=== PATIENT | female | born 1980 | race Caucasian/White ===

== ENCOUNTER 2016-05-01 09:31 | Day surgery (SDC) | payer SELFPAY ==
[2016-05-01] VITALS (23 sets, daily range): BP systolic 122–167; BP diastolic 65–101; PULSE 81–108; RESP 15–22; TEMP 97.1–100.4; O2SAT 95–100; Ht 152.4 cm; Wt 77.3 kg
[~2016-05-01] VITALS: Ht 152.4 cm; Wt 77.3 kg
[~2016-05-01 09:31] MED LIST: HUM10VIA3 SQ
--- OUTSIDE RECORDS SUMMARY | 2016-05-01 09:35 | XMS REPORT | Continuity of Care Document ---
Author Author [facility] Organization [facility] Address Unknown Phone Unavailable Support Name Relationship Address Phone MARINE BRICE APRN Caregiver [address] [place] [address] Unavailable SVETLANA ANDREA Next Of Kin [address] [place] [address] Insurance Providers Guarantor Sridevi Casey Address [address] [place] [id number] Email DENIED/NO PT PORTAL [facility] Diabetes Ed Subscriber's Name Arthur LittlejohntisandraSridevi Relationship 18 Self Problems Active Problems Medical Problem Onset Date Status Needle stick injury of finger Unknown Acute Needle stick injury of finger Unknown Acute Medications Current Home Medications Medication Dose Units Route Directions Days Qty Instructions Start Date Hum Insulin Nph/Reg Insulin Hm (Novolin 70-30 100 Unit/Ml Vial) 100 Unit/Ml Inj 47 Unit Sub-Q Twice A Day 04/08/14 Social History Social History Problem Response Recorded Date/Time Onset Date Status Hx Alcohol Use No 04/08/2014 2:10pm Not Applicable Not Applicable Tobacco Usage none 04/08/2014 2:50pm Not Applicable Not Applicable Hospital Discharge Instructions No hospital discharge instructions. Plan of Care Prescriptions See Medication Section Functional Status No functional status results. Allergies, Adverse Reactions, Alerts No known allergies. Immunizations No immunization records. Vital Signs No known vital signs results. Results No known relevant diagnostic tests, laboratory data and/or discharge summary. Procedures No known history of procedures. Encounters Encounter Location Arrival/Admit Date Discharge/Depart Date Attending Provider Discharged Recurring [facility] 12/17/15 4:41pm 02/03/16 11:59pm MARINE BRICE APRN
--- OUTSIDE RECORDS SUMMARY | 2016-05-01 09:35 | XMS REPORT | Continuity of Care Document ---
Author Author [facility] Organization [facility] Address Unknown Phone Unavailable Support Name Relationship Address Phone CLIENT, BILLING Caregiver Unknown Unavailable EMRE SVETLANA Next Of Kin [address] [place] [address] Insurance Providers Payer Name Policy Number Subscriber Name Relationship Workers Compensation Sridevi Pastrana 16 Self Problems Medical Problems Problem Onset Date Status Needle stick injury of finger Unknown Active Needle stick injury of finger Unknown Active Medications Medication Dose Route Sig Days/Qty Instructions Order Date Discontinued Date Status Hum Insulin NPH/Reg Insulin Hm 47 Unit SQ TWICE A DAY 04/08/14 Active Social History Social History Problem Response Recorded Date/Time Hx Alcohol Use No 04/08/2014 2:10pm Tobacco Usage none 04/08/2014 2:50pm Hospital Discharge Instructions No hospital discharge instructions. Plan of Care No plan of care. Functional Status Query Response Date Recorded Physical Hygiene Self April 08, 2014 2:10pm Physical Hygiene Self April 08, 2014 2:10pm Allergies, Adverse Reactions, Alerts Allergen Type Severity Reaction Status Last Updated No Known Allergies Active 04/08/14 Immunizations No immunization records. Vital Signs Acute Vital Signs Vital Response Date/Time Temperature (Fahrenheit) 96.8 deg F (96.8 - 99.1) Temperature (Calculated Celsius) 36.94030 degrees C (36.0 - 37.3) Pulse Rate (adult) 85 bpm (60 - 100) Respiratory Rate 16 breaths/min (10 - 20) O2 Sat by Pulse Oximetry 98 % (90 - 100) Blood Pressure 159/104 mm Hg Results Test Source Date Result Interp. Ref. Range Comments Alanine Aminotransferase (ALT/SGPT) February 20, 2008 5:07pm 29 U/L N 9- 52 Albumin February 20, 2008 5:07pm 4.9 G/DL N 3.5-5.0 Albumin/Globulin Ratio February 20, 2008 5:07pm 1.4 RATIO N 1.1-2.2 Alkaline Phosphatase February 20, 2008 5:07pm 77 U/L N 38-126 Anion Gap February 20, 2008 5:07pm 12.6 MEQ/L N 5-15 Aspartate Amino Transf (AST/SGOT) February 20, 2008 5:07pm 19 U/L N 14- 36 BUN/Creatinine Ratio February 20, 2008 5:07pm 13 RATIO N 6-26 Basophils # (Auto) February 20, 2008 5:07pm 0.0 T/MM3 N 0-0.2 Basophils (%) (Auto) February 20, 2008 5:07pm 0.2 % N 0-2 Blood Urea Nitrogen February 20, 2008 5:07pm 9 MG/DL N 7-17 Calcium Level February 20, 2008 5:07pm 9.7 MG/DL N 8.4-10.2 Calculated Osmolality February 20, 2008 5:07pm 277 MOSM/KG N 261-280 Carbon Dioxide Level February 20, 2008 5:07pm 26 MEQ/L N 22-30 Chloride Level February 20, 2008 5:07pm 106 MEQ/L N 98-107 Creatinine February 20, 2008 5:07pm 0.7 MG/DL N 0.7-1.2 Eosinophils # (Auto) February 20, 2008 5:07pm 0.2 T/MM3 N 0-0.5 Eosinophils (%) (Auto) February 20, 2008 5:07pm 4.8 % H 0-4 Free Thyroxine February 20, 2008 5:07pm 0.99 NG/DL N 0.78-2.19 Globulin February 20, 2008 5:07pm 3.5 G/DL N 2.4-3.5 Glucose Level February 20, 2008 5:07pm 86 MG/DL N 65-110 Hematocrit February 20, 2008 5:07pm 41.8 % N 36-46 Hemoglobin February 20, 2008 5:07pm 14.3 GM/DL N 12-16 Lymphocytes # (Auto) February 20, 2008 5:07pm 1.7 T/MM3 N 1-4.8 Lymphocytes (%) (Auto) February 20, 2008 5:07pm 36.2 % N 23-45 Mean Corpuscular Hemoglobin February 20, 2008 5:07pm 30.2 UUG N 26-34 Mean Corpuscular Hemoglobin Concent February 20, 2008 5:07pm 34.2 GM/DL N 31-37 Mean Corpuscular Volume February 20, 2008 5:07pm 88.2 UM3 N 80-100 Mean Platelet Volume February 20, 2008 5:07pm 11.6 UM3 H 7.4-10.4 Monocytes # (Auto) February 20, 2008 5:07pm 0.3 T/MM3 N 0-0.8 Monocytes (%) (Auto) February 20, 2008 5:07pm 6.0 % N 0-9.0 Neutrophils # (Auto) February 20, 2008 5:07pm 2.5 T/MM3 N 1.8-7.7 Neutrophils (%) (Auto) February 20, 2008 5:07pm 52.8 % N 33-66 Platelet Count February 20, 2008 5:07pm 232 T/MM3 N 130-400 Potassium Level February 20, 2008 5:07pm 4.4 MEQ/L N 3.6-5 RDW Standard Deviation February 20, 2008 5:07pm 41.7 FL N 36.9-50.2 Red Blood Count February 20, 2008 5:07pm 4.74 M/MM3 N 4.00-5.20 Sodium Level February 20, 2008 5:07pm 144 MEQ/L N 134-144 Thyroid Stimulating Hormone (TSH) February 20, 2008 5:07pm 0.75 MIU/ML N 0.47-4.68 Total Bilirubin February 20, 2008 5:07pm 0.73 MG/DL N 0.20-1.30 Total Protein February 20, 2008 5:07pm 8.4 G/DL H 6.3-8.2 White Blood Count February 20, 2008 5:07pm 4.8 T/MM3 N 4.5-11.0 Glomerular Filtration Rate Calc February 20, 2008 5:07pm 98 - Procedures No known history of procedures. Encounters Encounter Location Date/Time Registered Emergency Room [facility] 04/08/14 1:20pm
--- OUTSIDE RECORDS SUMMARY | 2016-05-01 09:57 | XMS REPORT | Continuity of Care Document ---
Author Author [facility] Organization [facility] Address Unknown Phone Unavailable Support Name Relationship Address Phone CLIENT, BILLING Caregiver Unknown Unavailable EMRE SVETLANA Next Of Kin [address] [place] [address] Insurance Providers Payer Name Policy Number Subscriber [...] F (96.8 - 99.1) Temperature (Calculated Celsius) 36.24121 degrees C (36.0 - 37.3) Pulse Rate [...] Encounters Encounter Location Date/Time Registered Emergency Room [facility] 04/08/14 1:20pm
[2016-05-01] MEDS ORDERED: MEDR150V IM (09:58)
[2016-05-01] MEDS ORDERED: ACET325T51 PO (09:59)
[2016-05-01] MEDS ORDERED: NORMAL SALINE 1,000 ML IV ONE ×2 (10:00→15:15)
[2016-05-01] MEDS ORDERED: IBUP-1547 PO (10:01)
[2016-05-01] MEDS ORDERED: INSU100V SQ (10:02)
[2016-05-01 10:03] LABS: HCT - HEMATOCRIT 43.1 % (36-46); HGB - HEMOGLOBIN 15.5 GM/DL (12-16); MEAN CORPUSCULAR HGB 30.4 UUG (26-34); MEAN CORPUSCULAR VOLUME 84.5 UM3 (80-100); MEAN PLATELET VOLUME 10.7 UM3 (9.4-12.4); WBC - WHITE BLOOD COUNT 12.2 T/MM3 (4.5-11.0)
[2016-05-01] MEDS ORDERED: LINA5TAB PO (10:03)
[2016-05-01] MEDS ORDERED: INSU100I21 SQ (10:04)
[2016-05-01] MEDS ORDERED: LISI-621 PO (10:04)
[2016-05-01 10:12] LABS: ALBUMIN 4.4 G/DL (3.5-5.0); ALBUMIN/GLOBULIN RATIO 1.3 RATIO (1.1-2.2); ALKALINE PHOSPHATASE 118 U/L (38-126); ALT (SGPT) 40 U/L (9-52); ANION GAP 17 MEQ/L (5-15); AST (SGOT) 26 U/L (14-36); BUN/CREATININE RATIO 14 RATIO (6-26); CALCIUM 9.1 MG/DL (8.4-10.2); CHLORIDE 101 MEQ/L (98-107); CO2 - CARBON DIOXIDE 24 MEQ/L (22-30); CREATININE 0.5 MG/DL (0.7-1.2); GLOMERULAR FILTRATION RATE 138; GLUCOSE 353 MG/DL (65-110); LIPASE 127 U/L (23-300); POTASSIUM 4.2 MEQ/L (3.6-5); SODIUM 142 MEQ/L (134-144); TOTAL PROTEIN 7.7 G/DL (6.3-8.2)
[2016-05-01 10:16] LABS: MONOCYTES # (MANUAL) 0.4 T/MM3 (0-0.8); NEUTROPHILS #(MANUAL)-ABSOLUTE 9.9 T/MM3 (1.8-7.7); TOTAL CELLS COUNTED 100 %
[2016-05-01 10:29] LABS: BLOOD, URINE NEGATIVE (NEGATIVE); COLOR,URINE YELLOW (YELLOW); LEUKOCYTE ESTERASE ,URINE NEGATIVE (NEGATIVE); NITRITE,URINE POSITIVE (NEGATIVE); UROBILINOGEN,URINE 0.2 EU/DL (NORMAL)
[2016-05-01] MEDS ORDERED: SALINE FLUSH 10ml SYRINGE ONE (10:30)
[2016-05-01] MEDS ORDERED: NORMAL SALINE 100 ML ONE (10:30)
[2016-05-01] MEDS ORDERED: IOHEXOL 300 MG/ML 100ml INJECTION ONE (10:30)
[2016-05-01 10:37] LABS: BACTERIA,URINE 4+ (NEGATIVE); RBC,URINE 0-1 /HPF (0-3); WBC,URINE 0-1 /HPF (0-5)
--- NOTE | 2016-05-01 11:12 | DI ---
Indication: ITS.REASON: RLQ Pain PROCEDURE: CT ABD/PELVIS W/CONTRAST ONLY: Encounter: Initial Comparison: None Technique: Axial CT images were performed through the abdomen and pelvis after the administration of intravenous contrast. Coronal and sagittal two-dimensional reformats. Automated Exposure Control and Iterative Reconstruction dose reducing techniques were utilized. Contrast: Omnipaque 300 100 mL Findings: Mild prominence of the interstitial markings in the lung bases. The liver is decreased in attenuation relative to the spleen consistent with fatty infiltration. No enhancing liver masses or bile duct dilatation. The gallbladder is normal. The spleen, pancreas and adrenal glands are within normal limits. Small probable cyst in the inferior aspect of the left kidney. The kidneys are otherwise normal. No abdominal or pelvic lymphadenopathy. The bladder is normal. Uterus and ovaries are normal for age. No free fluid or bowel obstruction. The appendix is enlarged measuring 9 mm in diameter. There may be trace inflammatory change in the adjacent fat. No free air or abscess. Bone windows show no acute findings. Calcified disk protrusion at T9-T10 causing right lateral recess narrowing. Impression: 1. Enlarged appendix with questionable minimal fat stranding consistent with an early or mild acute appendicitis in the appropriate clinical setting. Recommend surgical consultation. 2. Hepatic steatosis. .
[2016-05-01] MEDS ORDERED: FENTANYL 100mcg/2ml INJECTION IV ONE (11:30)
--- NOTE | 2016-05-01 11:31 | ERPDOC ---
Departure Disposition Decision Date: May 01, 2016 Disposition Decision Time: 11:20 Disposition: 02 TO [facility] Impression Impression Impression: Primary Impression: Acute appendicitis Acute appendicitis type: unspecified acute appendicitis type Qualified Codes : K35.80 - Unspecified acute appendicitis Additional Impression: Hyperglycemia Severity: Moderate Condition: Improved Seen By: Physician only Referrals: MARINE BRICE APRN (Family) Problems/Meds/Labs Reviewed?: Yes Medications reviewed and manag: Yes Follow up care ordered?: Yes Mental Status: Alert, Oriented HPI - Abdominal Pain General Chief Complaint: Abdominal Pain Stated Complaint: ABD PAIN Time Seen by Provider: 09:43 Source: patient History/Exam Limitations: no limitations HPI - Abdominal Pain Initial Comments 36-year-old female presents to the emergency department with a chief complaint of abdominal pain. Around 01:00 this morning, the patient noted onset of periumbilical abdominal pain which has migrated to the right lower quadrant. Pain is moderate. Pain is sharp. There is no radiation of pain. She notes that the pain increases with direct palpation of the affected area. Pain improves with rest and positioning. Patient denies any other complaints or associated symptoms. Patient was at home when her symptoms began. Symptoms have been persistent in nature since onset with gradual progression. Patient denies any trauma, travel, poorly prepared food, or recent antibiotic use. Allergies: Coded Allergies: No Known Allergies (Unverified , 05/01/16) Past History Past Medical History Metabolic: diabetes Hx Echocardiogram: No Surgical History Denies Surgeries Family History Family History: Negative Social History Smoking Status: Never smoker Substance Use Type: does not use Alcohol Intake: none Sexuality: male partner Review of Systems Constitutional Constitutional: DENIES: chills, fever Eyes General: DENIES: erythema, exudate Lids/Accessories: DENIES: erythema, swelling Vision: DENIES: acuity, blurring ENMT Ears: DENIES: erythema, pain Hearing: DENIES: hearing loss Balance: DENIES: ataxia, falling to one side Sinuses: DENIES: congestion, pain Nose: DENIES: nosebleeds, pain Mouth/Throat: DENIES: painful swallowing, sore throat Teeth: DENIES: pain Jaw: DENIES: pain Cardiovascular Cardiac: DENIES: chest pain, dyspnea on exertion Rhythm/Rate: DENIES: irregular beat, palpitations Vascular: DENIES: pedal edema, unilateral swelling Pulmonary Respiratory: DENIES: cough, dyspnea, pleuritic chest pain, sputum GI Upper Abdomen: DENIES: nausea, pain, vomiting Lower Abdomen: pain, DENIES: blood in stool, diarrhea General: DENIES: dysuria, pain Musculoskeletal General: DENIES: pain, tenderness Integumentary Skin: DENIES: itching, rash Neurological General: DENIES: headache, numbness, weakness Psychiatric Psychiatric: DENIES: emotional instability, suicidal ideation/attempt Endocrine Endocrine: DENIES: polydipsia, polyphagia Hematologic/Lymphatic Hematologic/Lymphatic: DENIES: frequent nosebleeds, lymphadenopathy Allergic/Immunological Allergic/Immunoligical: DENIES: allergic reactions, hives Physical Exam General General Nourishment: well nourished, well developed, appears stated age, no acute distress, adult General Body Habitus: well groomed Vitals and Pain First Documented Vital Signs Date Time Temp Pulse Resp B/P Pulse Ox O2 Delivery O2 Flow Rate FiO2 05/01/16 09:33 98.2 99 16 132/78 98 Room Air 05/01/16 19:27 6.00 Weight: Kilograms: 79.000 Height (feet): 5 Height (inches): 5.00 Triage Pain Scale: RN VS reviewed by Provider: Yes Normal Exams: Head: Normocephalic w/o trauma Eyes: Pupils are PERRLA w/ EOMI, No scleral icterus, irritation, or foreign bodies noted ENMT: No facial trauma, nasal exudates, pharyngeal erythema, or exudates are noted Dental: No fractured, loose, or missing teeth noted Neck: Full range of motion, without adenopathy, JVD, bruits or thyromegaly Chest/Resp: Clear all granda, with good airflow, and symmetry bilaterally CV: Regular rate and rhythm, without murmur or gallop, Pulses 2+ all extremities, capillary refill, <2 seconds all ext., no pedal edema noted Abdomen: Bowel sounds positive, non-distended, no hepatosplenomegaly, masses or bruits noted Lymphatic: No lymphadenopathy, or lymphedema noted Musculoskeletal: No tenderness, or deformity noted, good range of motion, all extremities Integumentary: No rashes, hives, or bruising noted, hair and nails, without abnormality Neurologic: Patient is alert, and oriented, cranial nerves, motor/sensory/ cerebellar, exams w/o gross deficits, to observation Psychiatric: Patient exhibits, appropriate attention, emotion and affect Abdomen (brief) Comments Tender to palpation in the right lower quadrant over McBurney's point. No peritoneal signs. No CVA tenderness. Lymphatic (brief) Comments Patient refused pelvic examination. Differential Diagnoses Considering: Appendicitis, Diverticulitis, Ectopic , IBS Progress Results/Orders Orders Procedure Category Date Status Time Cbc W/Auto LAB 05/01/16 Complete Diff-Reflex Manual Cmp - Comprehensive LAB 05/01/16 Complete Metabolic Lipase LAB 05/01/16 Complete LAB 05/01/16 Complete Qualitative, Urine 09:44 Normal Saline (Normal PHA 05/01/16 Complete Saline Iv) 10:00 Ct Abd/Pelvis CT 05/01/16 Resulted W/Contrast Only 10:15 UA, LAB 05/01/16 Complete Dip&Micro(Complete) & 10:21 Iohexol (Omnipaque) PHA 05/01/16 Complete 10:30 Normal Saline (Ns) PHA 05/01/16 Complete 10:30 Saline Flush (Iv PHA 05/01/16 Complete Flush) 10:30 Urine Culture BOUCHRA 05/01/16 In Process 10:37 Fentanyl (Fentanyl) PHA 05/01/16 Complete 11:30 Piperacillin/Tazobactam PHA 05/01/16 In Process (Zosyn) 15:00 Blood Gas, Arterial - LAB 05/01/[address] In Facility: ED ADM 05/01/16 Transmitted 11:28 Attending Doctor ADMIT 05/01/16 Transmitted 12:54 Normal Saline (Normal PHA 05/01/16 Complete Saline Iv) 13:00 Change Patient Status ADMIT 05/01/16 Transmitted to: Ondansetron Inj PHA 05/01/16 In Process (Zofran) 13:15 Morphine Sulfate PHA 05/01/16 Complete (Morphine) 13:15 Blood Glucose ANITA 05/01/16 In Process Assessment Bgm 13:10 Physician Consult CONS 05/01/16 Transmitted Cbc W/Auto LAB 05/02/16 Complete Diff-Reflex Manual 04:00 Bmp - Basic Metabolic LAB 05/02/16 Complete Panel 04:00 Incentive Spirometry RT 05/01/16 Logged Manage Incentive ANITA 05/01/16 In Process Spirometer 16:00 Compression Type Scd/ ANITA 05/01/16 In Process Nasir Hose 13:42 Insulin Regular PHA 3/24/17 Complete (Novolin R) 15:00 Normal Saline (Normal PHA 05/01/16 Complete Saline Iv) 15:15 Consent For Procedure ANITA 05/01/16 Complete 16:44 Fentanyl (Fentanyl) PHA 05/01/16 Complete 17:15 Propofol 200mg PHA 05/01/16 Complete (Diprivan) 17:39 Rocuronium (Zemuron) PHA 05/01/16 Complete 17:39 Succinylcholine PHA 05/01/16 Complete (Quelicin) 17:39 Sevoflurane (Ultane) PHA 05/01/16 Complete 18:01 Anesthesia Inhalation PHA 05/01/16 Complete Agent (Anesthesia 18:01 Fentanyl (Fentanyl) PHA 05/01/16 Complete 18:01 Propofol 200mg PHA 05/01/16 Complete (Diprivan) 18:55 Sugammadex (Bridion) PHA 05/01/16 Complete 18:56 Transfer TRANSFER 05/01/16 Complete Measure Vital Signs ANITA 05/01/16 In Process 19:21 Measure Intake And ANITA 05/01/16 In Process Output Nursing, Diet Advance ANITA 05/01/16 In Process 19:21 Clear Liquid: [place] & DIET 05/02/16 Transmitted Crackers Breakfast Activity As Tolerated ANITA 05/01/16 In Process 19:21 Blood Glucose ANITA 05/01/16 Complete Assessment Bgm 19:21 Manage Oxygen ANITA 05/01/16 Complete Administration 19:21 Manage Incentive ANITA 05/01/16 In Process Spirometer 19:21 Morphine Sulfate PHA 05/01/16 In Process (Morphine) 19:30 Oxycodone I.R. PHA 05/01/16 In Process (Roxicodone) 19:30 Acetaminophen PHA 05/01/16 In Process (Tylenol Extra 19:30 Ibuprofen (Motrin) PHA 05/01/16 In Process 19:30 Promethazine PHA 05/01/16 In Process (Phenergan) 19:30 Hot Pack / Heating Pad ANITA 05/01/16 In Process 19:21 Compression Type Scd/ ANITA 05/01/16 Complete Nasir Hose 19:21 Ondansetron Inj PHA 05/01/16 In Process (Zofran) 19:30 Oxygen, Continuous RT 05/01/16 Logged 19:21 Incentive Spirometry RT 05/01/16 Logged 19:21 Manage Oxygen ANITA 05/01/16 In Process Administration 19:30 Hydromorphone PHA 05/01/16 Complete (Dilaudid) 19:30 Ondansetron Inj PHA 05/01/16 Complete (Zofran) 19:30 Oxygen, Continuous RT 05/01/16 Logged 19:30 Glucose Oral Gel 40% PHA 05/01/16 In Process (Glutose 15) 22:30 Dextrose 50% Pfs PHA 05/01/16 In Process (D50w) 22:30 Insulin Regular PHA 05/01/16 In Process (Novolin R) 22:30 Blood Glucose ANITA 05/01/16 Complete Assessment Bgm 22:21 Lab Results Laboratory Tests Test 05/01/16 09:56 05/01/16 10:21 05/01/16 11:33 05/01/16 12:15 White Blood Count 12.2T/MM3 Red Blood Count 5.10M/MM3 Hemoglobin 15.5GM/DL Hematocrit 43.1% Mean Corpuscular Volume 84.5UM3 Mean Corpuscular Hemoglobin 30.4UUG Mean Corpuscular Hemoglobin Concent 36.0GM/DL RDW Standard Deviation 35.6FL Platelet Count 210T/MM3 Mean Platelet Volume 10.7UM3 Immature Granulocyte % (Auto) % Neutrophils (%) (Auto) % Lymphocytes (%) (Auto) % Monocytes (%) (Auto) % Eosinophils (%) (Auto) % Basophils (%) (Auto) % Absolute Immature Granulocyte (auto T/MM3 Absolute Neutrophils (auto) T/MM3 Absolute Lymphocytes (auto) T/MM3 Absolute Monocytes (auto) T/MM3 Absolute Eosinophils (auto) T/MM3 Absolute Basophils (auto) T/MM3 Neutrophils % (Manual) 81.0% Band Neutrophils % 8.0% Lymphocytes % (Manual) 8.0% Monocytes % (Manual) 3.0% Absolute Neutrophils (Manual) 9.9T/MM3 Band Neutrophils # 1.0T/MM3 Lymphocytes # (Manual) 1.0T/MM3 Monocytes # (Manual) 0.4T/MM3 Red Cell Morphology Comment Normal Turbidity < 20 Sodium Level 142MEQ/L Potassium Level 4.2MEQ/L Chloride Level 101MEQ/L Carbon Dioxide Level 24MEQ/L Anion Gap 17MEQ/L Blood Urea Nitrogen 7.0MG/DL Creatinine 0.5MG/DL Glomerular Filtration Rate Calc 138 BUN/Creatinine Ratio 14RATIO Glucose Level 353MG/DL Calculated Osmolality 285MOSM/KG Calcium Level 9.1MG/DL Total Bilirubin 1.10MG/DL Icterus Index < 2 Aspartate Amino Transf (AST/SGOT) 26U/L Alanine Aminotransferase (ALT/SGPT) 40U/L Alkaline Phosphatase 118U/L Total Protein 7.7G/DL Albumin 4.4G/DL Globulin 3.3G/DL Albumin/Globulin Ratio 1.3RATIO Lipase 127U/L Chemistry Specimen Hemolysis < 15 Urine Collection Type Cleancatch-midstream Urine Color Yellow Urine Turbidity Clear Urine pH 7.0 Urine Specific [place] 1.015 Urine Protein 1+ Urine Glucose (UA) 3+ Urine Ketones 3+ Urine Blood Negative Urine Nitrite Positive Urine Bilirubin Negative Urine Urobilinogen 0.2EU/DL Urine Leukocyte Esterase Negative Urine RBC 0-1/HPF Urine WBC 0-1/HPF Urine Squamous Epithelial Cells 5-10 Urine Bacteria 4+ Urine Culture Indicated Cult reflexed &setup Urine Test Negative Glucometer 218mg/dL Arterial Blood pH 7.440 Arterial Blood Partial Pressure CO2 35MMHG Arterial Blood pO2 at Patient Temp 69MMHG Arterial Blood HCO3 24MEQ/L Arterial Blood Total CO2 24.9MEQ/L Arterial Blood Oxygen Saturation 94.0% Arterial Blood Base Excess 0.0MMOL/L Oxygen Delivery Method (LAB) Room air Blood Gas Oxygen Liter Flow Blood Gas Oxygen Percent Given 21 Blood Gas Vent Rate Blood Gas Tidal Volume ML Test 05/01/16 12:37 05/01/16 14:14 05/01/16 15:02 05/01/16 16:00 Glucometer 235mg/dL 231mg/dL 223mg/dL 233mg/dL Test 05/01/16 17:09 05/01/16 21:40 05/02/16 04:30 05/02/16 06:03 Glucometer 210mg/dL 240mg/dL 258mg/dL White Blood Count 14.0T/MM3 Red Blood Count 4.49M/MM3 Hemoglobin 13.7GM/DL Hematocrit 39.0% Mean Corpuscular Volume 86.9UM3 Mean Corpuscular Hemoglobin 30.5UUG Mean Corpuscular Hemoglobin Concent 35.1GM/DL RDW Standard Deviation 37.3FL Platelet Count 194T/MM3 Mean Platelet Volume 11.3UM3 Immature Granulocyte % (Auto) 0.1% Neutrophils (%) (Auto) 80.1% Lymphocytes (%) (Auto) 11.7% Monocytes (%) (Auto) 8.0% Eosinophils (%) (Auto) 0.0% Basophils (%) (Auto) 0.1% Absolute Immature Granulocyte (auto 0.02T/MM3 Absolute Neutrophils (auto) 11.2T/MM3 Absolute Lymphocytes (auto) 1.6T/MM3 Absolute Monocytes (auto) 1.1T/MM3 Absolute Eosinophils (auto) 0.0T/MM3 Absolute Basophils (auto) 0.0T/MM3 Turbidity < 20 Sodium Level 136MEQ/L Potassium Level 3.7MEQ/L Chloride Level 104MEQ/L Carbon Dioxide Level 23MEQ/L Anion Gap 9MEQ/L Blood Urea Nitrogen 5.0MG/DL Creatinine 0.5MG/DL Glomerular Filtration Rate Calc 138 BUN/Creatinine Ratio 10RATIO Glucose Level 294MG/DL Calculated Osmolality 270MOSM/KG Calcium Level 8.1MG/DL Icterus Index < 2 Chemistry Specimen Hemolysis < 15 Medications Current ED Medications Sodium Chloride (Normal Saline IV) 1,000 ml @ 999 mls/hr Q1H1M ONCE IV Last administered on 05/01/16t 10:22; Start 05/01/16 at 10:00; Stop 05/01/16 at 11:00 ; Status DC Iohexol 1 bottle 1 bottle STK-MED ONCE .ROUTE ; Start 05/01/16 at 10:30; Stop at 10:31; Status DC Sodium Chloride (NS) 100 ml @ As Directed STK-MED ONCE .ROUTE ; Start 05/01/16 at 10:30; Stop 05/01/16 at 10:31; Status DC Sodium Chloride (Iv Flush) 10 ml STK-MED ONCE .ROUTE ; Start 05/01/16 at 10:30; Stop 05/01/16 at 10:31; Status DC Progress Progress Labs/imaging were discussed in detail with the patient and questions are answered. Patient is started on Zosyn 4.5 g intravenously times one after review of CT scan. Patient is given 1 L of normal saline intravenously. Patient's blood glucose improves from 350 to 218 milligrams per deciliter with the infusion of IV fluids. Patient is not acidotic. Blood gas shows normal pH. Patient is not in diabetic ketoacidosis as she is not acidotic. Patient will be admitted to the service of the hospitalist Dr. Moncada improved condition. Dr. Britton of general surgery was consulted and will perform appendectomy. No further orders from accepting or consulting physicians who were in agreement with the current plan of management. Patient is admitted to the hospital in improved condition. Patient was given parental narcotic and antiemetic medications intravenously which improved her symptoms. Patient is made nothing by mouth in the emergency department. Dr. Britton requests admission to the hospitalist due to the hyperglycemia and history of diabetes mellitus. CT CT : CT: Abd/Pelvis IV contrast Interpretation: Abnormal, Reviewed Written Report (Findings consistent with early acute appendicitis. no other acute processes. ) DEANDRE MCNULTY DO May 01, 2016 11:31
--- OUTSIDE RECORDS SUMMARY | 2016-05-01 11:41 | XMS REPORT | Continuity of Care Document ---
Author Author [facility] Organization [facility] Address Unknown Phone Unavailable Support Name Relationship Address Phone CLIENT, BILLING Caregiver Unknown Unavailable EMRE SVETLANA Next Of Kin [address] [place] [address] Insurance Providers Payer Name Policy Number Subscriber [...] F (96.8 - 99.1) Temperature (Calculated Celsius) 36.07483 degrees C (36.0 - 37.3) Pulse Rate [...] Encounters Encounter Location Date/Time Registered Emergency Room [facility] 04/08/14 1:20pm
--- NOTE | 2016-05-01 11:45 | NUR ---
MEDS NOT GIVEN ANITIBIOTICS NOT GIVEN AT THIS TIME, NOT STOCKED IN ED. PHARMACY NOTIFIED.
--- NOTE | 2016-05-01 11:55 | NUR ---
NURSING REPORT/PHARMACY CONTACT/RT CONTACT CALLED AND GAVE REPORT ON PT. PHARMACY ALSO CONTACTED AND THEY STATE THEY WILL TAKE ZOSYN TO PT'S ROOM ONCE FINISHED. RT ALSO CONTACTED AND THEY STATE THEY WILL DO ABG IN PT'S ROOM.
--- NOTE | 2016-05-01 12:00 | NUR ---
ARRIVAL PT TO ROOM 133 PER WHEELCHAIR BY ED STAFF. PT ON RA, TOLERATING WELL. VS STABLE. NS BOLUS INFUSING FROM ED. PT STATES PAIN IN BETTER. FAROESE SPEAKING, WILL GET STRATUS. FAMILY IN ROOM. WILL CONTINUE TO MONITOR.
--- NOTE | 2016-05-01 12:00 | NUR ---
DEPART ED/ADMIT PT TAKEN PER WHEELCHAIR TO ROOM 133 WITHOUT DIFFICULITES. PT'S WITH PT AND CARRYING PERSONAL BELONGINGS.
[2016-05-01] MEDS ORDERED: NORMAL SALINE 1,000 ML IV SCH (13:00)
--- NOTE | 2016-05-01 13:14 | HPPDOC ---
KILO VIVAR V RN INVASIVE 05/01/16 1303: HPI - Adult Date DATE: 05/01/16 TIME: 12:58 General Chief Complaint: Abd pain History of Present Illness Patient is a 36-year-old female who had a sudden onset of abdominal pain at 1 a.m. Pain persisted all morning Thus, she presented to the emergency room today for further evaluation and treatment. The WBC count was found to be slightly elevated at 12.2, hemoglobin 15.5, hematocrit 43.1, platelet count 210 , neutrophils 81% with 8% bandemia. Sodium is 142, potassium 4.2, anion gap 17, creatinine 0.5, BUN 7. Initial glucose was elevated at 353. However, currently on recheck is down to 235. Lipase is normal at 127. Urinalysis is obtained showing 1+ protein, 3+ glucose, 3+ ketones, positive nitrates with 4+ bacteria. CT scan of the abdomen did reveal an enlarged appendix with questionable fat stranding consistent with acute appendicitis. She was started on IV fluids while in the emergency room and received fentanyl for pain control. She was admitted under the hospitalist service as an outpatient for further evaluation and treatment. Dr. Britton is consulted for further surgical evaluation and treatment plan. Patient is seen on initial examination. She is alert and oriented and without any acute distress. Exam is performed via appraiser art screen. Complains of right lower quadrant and right sided abdominal pain. Past Medical History Past Medical History Type II diabetes Hypertension Depression Surgical History Patient's Surgical History: None Current Medications Home Meds Reported Medications Lisinopril (Lisinopril) 20 Mg Tablet, 20 MG PO DAILY 05/01/16 Insulin Detemir (Levemir Flextouch) 100 Unit/1 Ml Insuln.pen, 25 UNIT SQ HS 05/01/16 Linagliptin (Tradjenta) 5 Mg Tablet, 5 MG PO DAILY 05/01/16 Insulin Lispro (Humalog) 100 Unit/Ml Inj, 25 UNIT SQ TIDWM 05/01/16 Ibuprofen (Ibuprofen) 800 Mg Tablet, 800 MG PO TID Y for PAIN 05/01/16 Acetaminophen (Acetaminophen) 325 Mg Tablet, 325 MG PO PRN Y for PAIN 05/01/16 Medroxyprogesterone Acetate (Depo-Provera) 150 Mg/1 Ml Vial, 1 ML IM Q3M 3/24/17 Allergies: Coded Allergies: No Known Allergies (Unverified , 05/01/16) Family History Family History: Unable to obtain, noncontributory Social History Smoking Status: Never smoker Substance Use Type: does not use Marital Status: Sexuality: male partner Advance Directives: No DPOA for Healthcare Only Social History Comments Primary care provider, Juliet Hoffman at [facility] Review of Systems GI Lower Abdomen: pain (Right sided abd) All Other Systems All Other Systems: Reviewed (remainder of 10-point ROS Neg.) Physical Exam General General Nourishment: well nourished, well developed Vital Signs Vital Signs Date Time Temp Pulse Resp B/P Pulse Ox O2 Delivery O2 Flow Rate FiO2 05/01/16 12:05 98.9 88 16 145/98 97 Room Air Height (Feet): 5 Height (Inches): 0.00 ENMT Brief: FOUND: mucosa moist, normal dentition, NOT FOUND: pharnyx erythema Respiratory Brief: FOUND: clear all granda, equal bilaterally, NOT FOUND: wheezes Cardiovascular (brief) Cardiac Brief: FOUND: regular rate, regular rhythm, NOT FOUND: murmur, pedal edema Abdomen (brief) Abdominal Brief: FOUND: soft, tender (right sided abdominal), NOT FOUND: BS normo active x4 (hypoactive) Integumentary (brief) Integumentary Brief: FOUND: dry, pink, warm Neurologic (brief) Neurological Brief: FOUND: cranial 2-12 intact Neurologic RN Documented GCS Eye Opening: Verbal: Motor: Total: Psychiatric (brief) FOUND: alert, attentive, normal affect, oriented Laboratory Laboratory Tests Test 05/01/16 09:56 05/01/16 10:21 05/01/16 12:15 05/01/16 12:37 White Blood Count 12.2T/MM3 Red Blood Count 5.10M/MM3 Hemoglobin 15.5GM/DL Hematocrit 43.1% Mean Corpuscular Volume 84.5UM3 Mean Corpuscular Hemoglobin 30.4UUG Mean Corpuscular Hemoglobin Concent 36.0GM/DL RDW Standard Deviation 35.6FL Platelet Count 210T/MM3 Mean Platelet Volume 10.7UM3 Immature Granulocyte % (Auto) % Neutrophils (%) (Auto) % Lymphocytes (%) (Auto) % Monocytes (%) (Auto) % Eosinophils (%) (Auto) % Basophils (%) (Auto) % Absolute Immature Granulocyte (auto T/MM3 Absolute Neutrophils (auto) T/MM3 Absolute Lymphocytes (auto) T/MM3 Absolute Monocytes (auto) T/MM3 Absolute Eosinophils (auto) T/MM3 Absolute Basophils (auto) T/MM3 Neutrophils % (Manual) 81.0% Band Neutrophils % 8.0% Lymphocytes % (Manual) 8.0% Monocytes % (Manual) 3.0% Absolute Neutrophils (Manual) 9.9T/MM3 Band Neutrophils # 1.0T/MM3 Lymphocytes # (Manual) 1.0T/MM3 Monocytes # (Manual) 0.4T/MM3 Red Cell Morphology Comment Normal Turbidity < 20 Sodium Level 142MEQ/L Potassium Level 4.2MEQ/L Chloride Level 101MEQ/L Carbon Dioxide Level 24MEQ/L Anion Gap 17MEQ/L Blood Urea Nitrogen 7.0MG/DL Creatinine 0.5MG/DL Glomerular Filtration Rate Calc 138 BUN/Creatinine Ratio 14RATIO Glucose Level 353MG/DL Calculated Osmolality 285MOSM/KG Calcium Level 9.1MG/DL Total Bilirubin 1.10MG/DL Icterus Index < 2 Aspartate Amino Transf (AST/SGOT) 26U/L Alanine Aminotransferase (ALT/SGPT) 40U/L Alkaline Phosphatase 118U/L Total Protein 7.7G/DL Albumin 4.4G/DL Globulin 3.3G/DL Albumin/Globulin Ratio 1.3RATIO Lipase 127U/L Chemistry Specimen Hemolysis < 15 Urine Collection Type Cleancatch-midstream Urine Color Yellow Urine Turbidity Clear Urine pH 7.0 Urine Specific [place] 1.015 Urine Protein 1+ Urine Glucose (UA) 3+ Urine Ketones 3+ Urine Blood Negative Urine Nitrite Positive Urine Bilirubin Negative Urine Urobilinogen 0.2EU/DL Urine Leukocyte Esterase Negative Urine RBC 0-1/HPF Urine WBC 0-1/HPF Urine Squamous Epithelial Cells 5-10 Urine Bacteria 4+ Urine Culture Indicated Cult reflexed &setup Urine Test Negative Arterial Blood pH 7.440 Arterial Blood Partial Pressure CO2 35MMHG Arterial Blood pO2 at Patient Temp 69MMHG Arterial Blood HCO3 24MEQ/L Arterial Blood Total CO2 24.9MEQ/L Arterial Blood Oxygen Saturation 94.0% Arterial Blood Base Excess 0.0MMOL/L Oxygen Delivery Method (LAB) Room air Blood Gas Oxygen Liter Flow Blood Gas Oxygen Percent Given 21 Blood Gas Vent Rate Blood Gas Tidal Volume ML Glucometer 235mg/dL Assessment & Plan Problems: (1) Acute appendicitis Status: Acute Qualifiers: Acute appendicitis type: unspecified acute appendicitis type Qualified Codes: K35.80 - Unspecified acute appendicitis (2) Hyperglycemia Status: Acute Assessment & Plan: Acute, present on admission (3) Leukocytosis Status: Acute Qualifiers: Leukocytosis type: bandemia Qualified Codes: D72.825 - Bandemia Assessment & Plan: Present on admission (4) Type II diabetes mellitus Status: Chronic (5) Hypertension Status: Chronic (6) Hepatic steatosis Status: Chronic (7) Depression Status: Chronic Plan/Intensity of Service Admit patient to outpatient observation under the care of Dr Bess for acute appendicitis and hyperglycemia Dr Britton has been consulted for further surgical evaluation. Planning for appendectomy later this afternoon. Patient's initial blood sugar was elevated at 353. Receiving 1 liter of normal saline It has decreased down to 235. Will continue with IV fluids at 500 ML for per hour for the next 1 liter and recheck blood sugar at that time. ABG ordered on admission to rule out acidosis Patient is currently nothing by mouth with plan for surgery later today. Postoperatively, we will resume patient's normal home insulins including Levemir 25 units at at bedtime and Humalog 25 units with meals. Patient also takes Trajenta 5 mg daily Zosyn IV initiated for antimicrobial coverage Will resume other home medications including lisinopril for hypertension Zofran as needed for nausea and morphine available as needed for pain control. At time of discharge, patient's medical care will return to her primary care provider at [facility], Juliet Aguayo APRN Code Status Full Code Hospital Course Summary Disclaimer The hospital course summary below is not to be considered part of the above Progress Note. Hospital Course Summary 05/01 Admit patient to outpatient observation under the care of Dr Bess for acute appendicitis and hyperglycemia Dr Britton has been consulted for further surgical evaluation. Planning for appendectomy later this afternoon. Patient's initial blood sugar was elevated at 353. Receiving 1 liter of normal saline It has decreased down to 235. Will continue with IV fluids at 500 ML for per hour for the next 1 liter and recheck blood sugar at that time. ABG ordered on admission to rule out acidosis Patient is currently nothing by mouth with plan for surgery later today. Postoperatively, we will resume patient's normal home insulins including Levemir 25 units at at bedtime and Humalog 25 units with meals. Patient also takes Trajenta 5 mg daily Zosyn IV initiated for antimicrobial coverage Will resume other home medications including lisinopril for hypertension Zofran as needed for nausea and morphine available as needed for pain control. At time of discharge, patient's medical care will return to her primary care provider at [facility], Juliet Hoffman KIRAN ROMERO MD 05/01/16 1535: Past Medical History Current Medications Home Meds Reported Medications Lisinopril (Lisinopril) 20 Mg Tablet, 20 MG PO DAILY 05/01/16 Insulin Detemir (Levemir Flextouch) 100 Unit/1 Ml Insuln.pen, 25 UNIT SQ HS 05/01/16 Linagliptin (Tradjenta) 5 Mg Tablet, 5 MG PO DAILY 05/01/16 Insulin Lispro (Humalog) 100 Unit/Ml Inj, 25 UNIT SQ TIDWM 05/01/16 Ibuprofen (Ibuprofen) 800 Mg Tablet, 800 MG PO TID Y for PAIN 05/01/16 Acetaminophen (Acetaminophen) 325 Mg Tablet, 325 MG PO PRN Y for PAIN 05/01/16 Medroxyprogesterone Acetate (Depo-Provera) 150 Mg/1 Ml Vial, 1 ML IM Q3M 05/01/16 Allergies: Coded Allergies: No Known Allergies (Unverified , 05/01/16) Assessment & Plan Plan/Intensity of Service Have independently interviewed and examined pt. Chart reviewed case discussed with my RN INVASIVE. Care plan developed with my supervision; agree with above. Woke this morning with acute onset of ab pain. Worse with movements. Persisted all morning. Appetite decreased. Slight nausea. Breathing well. No chest pain. Lungs: clear CV: regular AB: soft ND, +tenderness to RLQ, BS decreased EXT: no edema MSE: awake alert appropriate Plan; OBS, IV Zosyn for antimicrobial coverage of GI pathogens, NPO for bowel rest. Sx consult, IVF for hydration, SCD for DVT prevention, MS for pain control , Zofran prn nausea, monitor sugars. DVT Prophylaxis: SCD'S KILO VIVAR APRN May 01, 2016 13:03 KIRAN BESS MD May 01, 2016 15:35
[2016-05-01] MEDS ORDERED: ONDANSETRON 4mg/2ml INJECTION IV PRN ×3 (13:15→19:30)
[2016-05-01] MEDS ORDERED: MORPHINE SULFATE 2 MG SYRINGE IV PRN (13:15)
[2016-05-01] MEDS ORDERED: INSULIN REGULAR 100 UNIT/ML SQ ONE (15:00)
[2016-05-01] MEDS: PIPERACILLIN/TAZOBACTAM 4.5 G in NORMAL SALINE 100 ML IV SCH ×2 (15:25→21:17)
--- NOTE | 2016-05-01 16:11 | ANESPREOP ---
Anesthesia Record Date and Time DATE: 05/01/16 TIME: 16:10 Pre-Op Diagnosis Acute Appy Proposed Surgical Procedure Lap Appy NPO since: Midnight Allergies: Coded Allergies: No Known Allergies (Unverified , 05/01/16) Ht/Wt/BMI Height: 5 ' 0.00 " Weight: 77.400 kg BMI: 33.3 kg/m2 Vital Signs Date Time Temp Pulse Resp B/P Pulse Ox O2 Delivery O2 Flow Rate FiO2 05/01/16 15:08 88 16 97 Room Air 05/01/16 12:05 98.9 145/98 Medications Inpatient Medications Current Medications Medications (Trade) Dose Ordered Sig/Emelia Start Time Stop Time Status Last Admin Dose Admin Piperacillin Sod/ Tazobactam Sod 4.5 g/Sodium Chloride 100 ml @ 200 mls/hr Q6HR 05/01/16 15:00 05/01/16 15:25 200 MLS/HR Sodium Chloride (Normal Saline IV) 1,000 ml @ 500 mls/hr Q2H 05/01/16 13:00 05/01/16 14:59 DC 05/01/16 12:50 500 MLS/HR Ondansetron HCl (Zofran) 4 mg Q6H PRN 05/01/16 13:15 Morphine Sulfate (Morphine) 2 mg Q2H PRN 05/01/16 13:15 05/01/16 14:10 2 MG Acetaminophen (Acetaminophen) 325 Mg Tablet, 325 MG PO PRN PRN for PAIN, ( Reported) Last Taken: on Unknown Date & Time Ibuprofen (Ibuprofen) 800 Mg Tablet, 800 MG PO TID PRN for PAIN, (Reported) Last Taken: on Unknown Date & Time Insulin Detemir (Levemir Flextouch) 100 Unit/1 Ml Insuln.pen, 25 UNIT SQ HS, (Reported) Last Taken: on 04/30/161829 Insulin Lispro (Humalog) 100 Unit/Ml Inj, 25 UNIT SQ TIDWM, (Reported) Last Taken: on 04/30/161829 Linagliptin (Tradjenta) 5 Mg Tablet, 5 MG PO DAILY, (Reported) Last Taken: on 04/30/16 Lisinopril (Lisinopril) 20 Mg Tablet, 20 MG PO DAILY, (Reported) Last Taken: on 04/30/16 Medroxyprogesterone Acetate (Depo-Provera) 150 Mg/ 1 Ml Vial, 1 ML IM Q3M, (Reported) Last Taken: on Unknown Date & Time Currently on Beta Latrice: No Medical/Surgical History Anesthesia PMH: Reports: *Diabetes, *Hypertension, Denies: *UT, Asthma, Blood Transfusion Reac, CHF, COPD, CVA/Stroke/TIA, Cancer, Seizures Smoking Status: Never smoker Has pt. smoked today?: No Use Chewing Tobacco?: No Second Hand Exposure: No Substance Use Type: does not use Alcohol Intake: none HX of Last Menstrual Period: DEPO/NONE Past Surgical History Orthopedic Surgeries: No Abdominal Surgeries: No Genitourinary Surgeries: No Cardiac Surgeries: No Endocrine Surgeries: No Reproductive Surgeries: No Neurological Surgeries: No Ear Surgeries: Nose Surgeries: Throat Surgeries: Other Surgeries: No Anesthesia Adverse Reactions: FOUND none Family Hx of Anesthesia Advers: none Hx of Motion Sickness: No Pertinent Findings Laboratory Tests 05/01/16 09:56 Test 05/01/16 10:21 Urine Test Negative (NEGATIVE) EKG Rhythm: Sinus Rhythm Physical Exam Respiratory: Lungs clear Cardiovascular: FOUND Regular rate, rhythm Airway Assessment Mallampati Score: II TMD: 3 Fingerbreadths Neck Extension: Good Overall Assessment: No Airway Concerns ASA: 2 Plan Anesthesia Plan: GETA Discussion Discussed risks/options/alternatives of anesthesia and questions answered. Patient consents. Nursing pain assessment noted. Attestation Statement Prior to the delivery of any anesthetic medication, I examined the patient, developed the plan, obtained the patient's consent and discussed the risk and benefits of the procedure with the patient/guardian. LEOBARDO RIZZO WASHER HAND May 01, 2016 16:11
--- NOTE | 2016-05-01 16:28 | NUR ---
OFF UNIT PT TAKEN TO PRE OP BY BED ACCOMPANIED BY PACU STAFF
--- NOTE | 2016-05-01 17:09 | NUR ---
DM Screen Diet Order: NPO RD attempted to visit pt. Pt was preparing for surgery Based on [address] [facility] with 1.3 activity factor and 1.0 injury factor caloric needs ~ [address] to maintain current weight. RD recommends 1800 calorie consistent carb diet when pt able to tolerate po diet. DM screen deferred due to pt's medical condition today. RD available at ext [phone]
[2016-05-01] MEDS ORDERED: FENTANYL 100mcg/2ml INJECTION IV PRN (17:15)
[2016-05-01] MEDS ORDERED: PROPOFOL 200mg 20 ML IV ONE ×2 (17:39→18:55)
[2016-05-01] MEDS ORDERED: ROCURONIUM 50mg/5ml INJECTION IV ONE (17:39)
[2016-05-01] MEDS ORDERED: SEVOFLURANE 250 ML LIQUID IH ONE (18:01)
[2016-05-01] MEDS ORDERED: FENTANYL 250mcg/5ml INJECTION ONE (18:01)
[2016-05-01] MEDS ORDERED: SUGAMMADEX 200 MG/2 ML INJECTION IV ONE (18:56)
--- NOTE | 2016-05-01 19:23 | GSPOSTPROC ---
Immediate Operative Note DATE: 05/01/16 TIME: 19:22 Postop Diagnosis: Acute appendicitis Surgical Procedure: Other (Laparoscopic appendectomy) Surgeon: Tobi ASA: 2 TEDDY RANGEL MD May 01, 2016 19:23
[2016-05-01] MEDS ORDERED: IBUPROFEN 200 MG TABLET PO PRN (19:30)
[2016-05-01] MEDS ORDERED: HYDROMORPHONE 2mg/ml INJECTION IV PRN (19:30)
[2016-05-01] MEDS ORDERED: ACETAMINOPHEN 500 MG TABLET PO PRN (19:30)
[2016-05-01] MEDS ORDERED: PROMETHAZINE 25 MG INJECTION IV PRN (19:30)
--- NOTE | 2016-05-01 20:19 | ANESPO ---
Post-Op Note Date 05/01/16 Time: 20:19 Status Pt Participated in Evaluation: Pt participated in person Vital Signs Date Time Temp Pulse Resp B/P Pulse Ox O2 Delivery O2 Flow Rate FiO2 05/01/16 19:55 95 16 131/83 98 Room Air 05/01/16 19:35 6.00 05/01/16 19:27 97.1 Respiratory Function: Airway patent, Regular respirations Cardiovascular Function: Regular pulse Mental Status: Alert/oriented Pain Level Intensity: 0 Hydration: Taking po fluids Complications during Recovery None apparent Follow-Up Instructions Instructions Per Surgeon LEXI CAREY CRNA May 01, 2016 20:19
[2016-05-01] MEDS: MORPHINE SULFATE 10 MG SYRINGE IV PRN ×2 (21:12→23:21)
[2016-05-01] MEDS ORDERED: GLUCOSE ORAL GEL 40% 37.5 G TUBE PO PRN (22:30)
[2016-05-01] MEDS ORDERED: DEXTROSE 50% SYRINGE 50ml (Eq. 1 AMP) IV PRN (22:30)
[2016-05-01] MEDS: INSULIN REGULAR 100 UNIT/ML SQ PRN (22:44)
[2016-05-01] MEDS: OXYCODONE I.R. 5 MG TABLET PO PRN (23:19)
[2016-05-02 05:09] LABS: BASOPHILS % (AUTO) 0.1 % (0-2); HGB - HEMOGLOBIN 13.7 GM/DL (12-16); IMMATURE GRANULOCYTE # (AUTO) 0.02 T/MM3 (0.00-0.03); IMMATURE GRANULOCYTE % (AUTO) 0.1 % (0.0-0.5); LYMPHOCYTES # (AUTO) 1.6 T/MM3 (1-4.8); LYMPHOCYTES % (AUTO) 11.7 % (23-45); MEAN CORPUSCULAR HGB 30.5 UUG (26-34); MEAN CORPUSCULAR HGB CONC(MCHC 35.1 GM/DL (31-37); MEAN CORPUSCULAR VOLUME 86.9 UM3 (80-100); MEAN PLATELET VOLUME 11.3 UM3 (9.4-12.4); MONOCYTES # (AUTO) 1.1 T/MM3 (0-0.8); NEUTROPHILS #(AUTO)-ABSOLUTE 11.2 T/MM3 (1.8-7.7); NEUTROPHILS % (AUTO) 80.1 % (33-66); RED BLOOD COUNT 4.49 M/MM3 (4.00-5.20)
[2016-05-02 05:25] LABS: ANION GAP 9 MEQ/L (5-15); BUN/CREATININE RATIO 10 RATIO (6-26); CALCIUM 8.1 MG/DL (8.4-10.2); CHLORIDE 104 MEQ/L (98-107); CO2 - CARBON DIOXIDE 23 MEQ/L (22-30); CREATININE 0.5 MG/DL (0.7-1.2); GLOMERULAR FILTRATION RATE 138; GLUCOSE 294 MG/DL (65-110); POTASSIUM 3.7 MEQ/L (3.6-5); SODIUM 136 MEQ/L (134-144)
[2016-05-02] MEDS: PIPERACILLIN/TAZOBACTAM 4.5 G in NORMAL SALINE 100 ML IV SCH ×3 (06:19→17:37)
[2016-05-02] MEDS: INSULIN REGULAR 100 UNIT/ML SQ PRN ×3 (07:04→17:28)
--- NOTE | 2016-05-02 07:33 | NUR ---
SHIFT SUMMARY Pt arrived to unit at 2003 from post op. Report received in SBAR. All cares assumed. Assessment complete. See flowsheet. PT at BS. Slight language barrier. Pt fluids completed et SL to L FA PIV. Pt c/o nausea et received Zofran 4 mg IV from kiln charger. 2117 Pt c/o nausea et pain. Morphine 2 mg IV given. Phenergan 12.5mg given. [address] Moscoso via tiger text pt BGM with no SSI. Pt temp increased to 100.4 Obtained orders. See chart. 2242 Tylenol 500mg 2 tabs PO for fever. Will cont to monitor. 2318 Pain 6-7/10 Hafsa 5 mg 2 tabs PO given. Follow up scale 0/10 FLACC. Pt assisted up to BSC, no complications. 0600 Pt resting at this time. RN nearby. Will cont to monitor. 0715 Report given in SBAR. All cares resigned.
[2016-05-02 07:50] VITALS: BP 132/79; PULSE 85; RESP 16; TEMP 97.3; O2SAT 98
[2016-05-02 07:53] VITALS: PULSE 85; RESP 18
--- NOTE | 2016-05-02 09:24 | CONSF ---
DATE OF CONSULTATION 05/01/2016 HISTORY OF PRESENT ILLNESS This patient is 36 years old. She experienced the onset of right-sided abdominal pain at 1 a.m. on 05/01/2016. The pain persisted throughout the morning. The patient did come to [facility] Room for further evaluation of the pain. The patient was found at the emergency room to have a slightly elevated white blood cell count at 12,200. Serum glucose was also noted to be 353. The patient does have a history of type [address] scan of the abdomen and pelvis was performed, which showed an enlarged appendix with fat stranding with and overall appearance consistent with acute appendicitis. The patient continues to have right- sided abdominal pain at this time. PHYSICAL EXAMINATION VITAL SIGNS: Temperature is 98.2 degrees oral. Pulse is 99. Respiratory rate is 16. Blood pressure is 132/78. Oxygen saturation is 98% on room air. ABDOMEN: The abdomen is soft. The patient does have right lower quadrant abdominal tenderness. LABORATORY DATA White blood cell count is 12,200 with 8 bands. Hemoglobin is 15.5. Hematocrit is 43.1. Serum glucose in the emergency room was 353. IMAGING DATA CT scan of the abdomen and pelvis performed on 05/01/2016 shows an enlarged appendix with surrounding fat stranding consistent with acute appendicitis. IMPRESSION 1. Acute appendicitis. 2. Type 2 diabetes mellitus. 3. Hyperglycemia. PATIENT EDUCATION With the use of an senior quantity surveyor, I did inform the patient of the nature of a laparoscopic appendectomy operation. Expected benefits were reviewed. Alternatives were reviewed. Potential risks and complications were reviewed. Questions were solicited from the patient. All of her questions were answered. She does appear to understand. She does wish to proceed. PLAN 1. Preoperative treatment of hyperglycemia to decrease the level of hyperglycemia prior to operation. 2. I agree with the intravenous Zosyn, which has been started for the patient. 3. Laparoscopic appendectomy later today. RONY
[2016-05-02] MEDS: OXYCODONE I.R. 5 MG TABLET PO PRN ×2 (10:08→13:15)
--- NOTE | 2016-05-02 10:27 | NUR ---
CM CM IN TO VISIT WITH PT. SHE IS ALERT AND ORIENTED. HER SPOUSE IS PRESENT. PT PLANS TO RETURN HOME. SHE DENIES DC NEEDS. LACE SCORE IS 4. NO FURTHER INTERVENTION NEEDED. SHE IS GIVEN CM CONTACT INFORMATION IN GHANAIAN AND CHINESE. SHE IS MADE AWARE THAT CM ANTICIPATES DC TODAY. Addendum: 05/02/16 at 1028 by SAMINA SHIELDS RN Amended: Links added.
[2016-05-02 11:35] VITALS: BP 129/83; PULSE 92; RESP 16; TEMP 99; O2SAT 97
--- NOTE | 2016-05-02 11:52 | OPNOTEF ---
DATE OF OPERATION 05/01/2016 PREOPERATIVE DIAGNOSIS Acute appendicitis. POSTOPERATIVE DIAGNOSIS Acute appendicitis. OPERATION Laparoscopic appendectomy. SURGEON Jaime Britton MD ANESTHESIA General. ASA CLASS 2 FINDINGS The patient did appear to have acute appendicitis. The appendix appeared to be distended and inflamed. There was no perforation of the appendix. There was no periappendiceal abscess. Loops of small intestine appeared normal. The terminal ileum appeared normal. The cecum appeared normal. The ascending colon appeared normal. DESCRIPTION OF OPERATION The patient was placed in the supine position on the operating table. General anesthesia was satisfactorily introduced. A Mont[place] Oca catheter was inserted into the urinary bladder. The abdomen was prepped and draped in a routine sterile fashion. The skin and underlying structures at the abdominal wall at a supraumbilical incision site were infiltrated with bupivacaine 0.25% without epinephrine. A supraumbilical incision was made. A Veress needle was inserted into the peritoneal cavity through the incision. Pneumoperitoneum was established with carbon dioxide. The Veress needle was removed. A 5-mm port was placed at the supraumbilical incision. The 5-mm laparoscopic was inserted through the 5-mm supraumbilical port. The skin and underlying abdominal wall structures were infiltrated with bupivacaine at the lateral margin of the right rectus abdominis muscle at the right upper quadrant of the abdomen at another incision site. An incision was made at this location, and a 5-mm port was placed at the right upper quadrant abdominal incision. The skin and underlying abdominal wall structures were infiltrated with bupivacaine at a suprapubic incision site. A suprapubic incision was made at the midline. A 12-mm port was placed at the suprapubic incision. The peritoneal cavity was examined with the laparoscope with findings as described above. The appendix was grasped and elevated with the endoscopic [place] forceps inserted at the suprapubic port. The mesoappendix was divided with the Ethicon brand 5-mm laparoscopic ultrasonically activated coagulating dora. This was the Harmonic Al ultrasonic dora. This was introduced at the right upper quadrant port. The mesoappendix was coagulated and divided with the Ethicon brand 5-mm laparoscopic ultrasonically activated coagulating dora. The appendix was completely freed up in this manner. Two separate 0 PDS Endoloop ligatures were applied to the base of the appendix adjacent to the cecum. The appendix was then divided just beyond these ligatures with a curved dissecting scissors. The appendix was placed in a specimen retrieval pouch. The specimen retrieval pouch containing the appendix was brought out through the suprapubic incision. The appendix was submitted as a specimen for study by the pathologist. The 12-mm port was reinserted at the suprapubic incision. The appendectomy site looked good. The appendiceal stump looked good. Irrigation was performed at the right upper quadrant of the abdomen around the cecum. Irrigation was performed at the pelvis. Irrigation was performed at the right lateral gutter. Irrigation fluid was removed. Hemostasis appeared be satisfactory at the appendectomy site. The suprapubic port was removed. The right upper quadrant port was removed. The laparoscopic was removed. The supraumbilical port was removed. Carbon dioxide was removed from the peritoneal cavity by desufflation. The fascial layer of the suprapubic incision was closed with a series of simple interrupted stitches using 0 Vicryl suture. Skin margins were then closed at all the incisions with subcuticular stitches using 4-0 Vicryl suture. Benzoin and 1/4-inch wide Steri-Strips were applied to the incisions. Sterile dressings were applied. The patient tolerated the operation well. The patient was transferred from the operating room to the recovery room in satisfactory condition. RONY
--- NOTE | 2016-05-02 13:27 | PNPDOC ---
Subjective Date DATE: 05/02/16 TIME: 13:22 Subjective F/U: Acute appendicitis, leukocytosis. Doing okay. Abdomen still very sore, incisions hurt with movement. Not feeling nauseated. Taking oral in. Feels chilled. Breathing well. Urinating well. Objective Vital Signs Vital signs Vital Signs Date Time Temp Pulse Resp B/P Pulse Ox O2 Delivery O2 Flow Rate FiO2 05/02/16 11:35 99.0 92 16 129/83 97 Room Air 05/01/16 19:35 6.00 Height (Feet): 5 Height (Inches): 0.00 Weight (Kilograms): 77.300 General General Appearance: Alert, Obese, Orientated x 3, Well Nourished, Well Developed, Cooperative, Mild Distress, Looks Stated Age Eyes (Brief) Eyes: FOUND: EOMI, PERRL, NOT FOUND: scleral icterus ENMT (Brief) ENMT: FOUND: hearing intact, mucosa moist Neck (Brief) Neck: FOUND: midline, NOT FOUND: nuchal rigidity, spasm Respiratory (Brief) Respiratory: FOUND: clear all granda, equal bilaterally, NOT FOUND: rales, wheezes Cardiovascular (Brief) Cardiac: FOUND: regular rate, regular rhythm Abdomen (Brief) Abdominal: FOUND: BS normo active x4, soft, tender (Mild, worse at incisional sites. ), NOT FOUND: distended Extremities (Brief) Extremity : Side: Bilateral Extremity: leg Extremity Finding: NOT FOUND: edema Musculoskeletal (Brief) Musculoskeletal: FOUND: extremities move equally, NOT FOUND: deformity, loss of motion, spasm, tenderness Integumentary (Brief) Integumentary: FOUND: dry, other (incisions covered and dry. ), warm Neurologic (Brief) Neurological: FOUND: cranial 2-12 intact, motor (Intact ) Psychiatric (Brief) Psychiatric: FOUND: alert, attentive, normal affect, oriented Laboratory Laboratory Laboratory Tests 05/01/16 09:56 05/02/16 04:30 Laboratory Tests 05/01/16 09:56 05/02/16 04:30 Microbiology Microbiology Microbiology Date/Time Source Procedure Growth Status 05/01/16 10:37 Urine, Clean Catch-Midstream Urine Culture - Preliminary CULTURE INITIATED - RESULTS PENDING Resulted Assessment & Plan Problems: (1) Acute appendicitis Status: Resolved Qualifiers: Acute appendicitis type: unspecified acute appendicitis type Qualified Codes: K35.80 - Unspecified acute appendicitis Assessment & Plan: 05/01: Ra mathur - Dr Britton (2) Hyperglycemia Status: Acute Assessment & Plan: Acute, present on admission (3) Leukocytosis Status: Acute Qualifiers: Leukocytosis type: bandemia Qualified Codes: D72.825 - Bandemia Assessment & Plan: Present on admission (4) Type II diabetes mellitus Status: Chronic (5) Hypertension Status: Chronic (6) Hepatic steatosis Status: Chronic (7) Depression Status: Chronic (8) Obesity Status: Chronic Qualifiers: Obesity type: due to excess calories Obesity severity: non-morbid Qualified Codes: E66.09 - Other obesity due to excess calories Plan/Intensity of Service Will continue antibiotics due to Leukocytosis. Encourage ambulation. Anticipate d/c to home later today if continues to do well. 1745 Rechecked on pt this evening. Continues to do well. Pain controlled. No nausea. Taking oral well. Discussed with Dr Britton who agree with plans for discharge. Will d/c to home. Diet as tolerated. No lifting more than 5 pounds. Return to work on 05/06 Augmenting 500mg BID for 5 days. F/U with Dr Britton in 1 week See orders for details. DVT Prophylaxis: SCD'S Code Status Full Code Hospital Course Summary Disclaimer The hospital course summary below is not to be considered part of the above Progress Note. Hospital Course Summary 05/01 Admit patient to outpatient observation under the care of Dr Bess for acute appendicitis and hyperglycemia Dr Britton has been consulted for further surgical evaluation. Planning for appendectomy later this afternoon. Patient's initial blood sugar was elevated at 353. Receiving 1 liter of normal saline It has decreased down to 235. Will continue with IV fluids at 500 ML for per hour for the next 1 liter and recheck blood sugar at that time. ABG ordered on admission to rule out acidosis Patient is currently nothing by mouth with plan for surgery later today. Postoperatively, we will resume patient's normal home insulins including Levemir 25 units at at bedtime and Humalog 25 units with meals. Patient also takes Trajenta 5 mg daily Zosyn IV initiated for antimicrobial coverage Will resume other home medications including lisinopril for hypertension Zofran as needed for nausea and morphine available as needed for pain control. At time of discharge, patient's medical care will return to her primary care provider at [facility], Juliet Aguayo APRN 05/01 Doing okay. Abdomen still very sore, incisions hurt with movement. Not feeling nauseated. Taking oral in. Feels chilled. Breathing well. Urinating well. Will continue antibiotics due to Leukocytosis. Encourage ambulation. Anticipate d/c to home later today if continues to do well. KIRAN BESS MD May 02, 2016 13:26
[2016-05-02 16:00] VITALS: BP 144/99; PULSE 99; RESP 16; TEMP 98.6; O2SAT 98
--- NOTE | 2016-05-02 16:34 | PNF ---
DATE 05/02/2016 POSTOP DAY #1 HISTORY The patient has been ambulating well. She is tolerating her diet without any nausea or vomiting. The patient has good pain control. She has used oxycodone 5 mg one tablet on two occasions. IMPRESSION 1. Doing well following laparoscopic appendectomy on 05/01/2016. 2. Type 2 diabetes mellitus. PLAN Dismiss patient from [facility] today. RONY
[2016-05-02] MEDS ORDERED: AMOX1TAB15 PO (17:40)
[2016-05-02] MEDS ORDERED: OXYC5TAB84 PO (17:40)
--- NOTE | 2016-05-02 17:47 | PD.WORK ---
Work Release DATE: 05/02/16 TIME: 17:45 Work Release Excused for: Sridevi Esteves was hospitalized at [facility] from 05/01 until 05/02 for surgery. She may return to work on 05/06/16. No lifting more than 5 pounds for 2 week. She will need to follow up with Dr Britton in 1 week. KIRAN SCHNEIDER MD May 02, 2016 17:47
--- NOTE | 2016-05-02 18:48 | NUR ---
Discharge VS stable on RA. IV catheter DC'd prior to discharge, catheter tip intact. Prescription for oxycodone and antibiotic was given to Pt and family, copy placed in chart. Pt was discharged through ER entrance via wheelchair by Redd Hutchinson RN in the company of [facility]. Discharge packet and instructions were given to Pt. This RN discussed medications, diet, restrictions, and activity with Pt. Pt verbalized understanding and had no further questions. Steri Strips in place to incisions.
--- NOTE | 2016-05-03 12:08 | DSF ---
ADMITTING DIAGNOSIS Acute appendicitis DISCHARGE DIAGNOSIS Acute appendicitis - resolved; status post laparoscopic appendectomy. ASSOCIATED CONDITIONS/COMPLICATIONS 1. Leukocytosis - secondary to appendicitis. 2. Hyperglycemia. 3. Type 2 diabetes mellitus. 4. Hypertension . 5. Hepatic steatosis. 6. Depression. 7. Obesity. CONSULTS Dr. Britton - surgery. PROCEDURES 05/01/2016: Laparoscopic appendectomy - Dr. Britton. CLINICAL RESUME The patient is a 36-year-old female who presents to [facility] emergency room secondary to sudden onset of abdominal pain. Symptoms started at approximately 1 o'clock a.m. Her pain persisted all morning. She was not able to get relief and her discomfort was worsening. She presents to emergency room for evaluation. There she was found to have leukocytosis with white count 12.2. Blood sugars were 350. Lipase was normal. She had did undergo CT scan of abdomen and pelvis which revealed an enlarged appendix suspicious for acute appendicitis. In the emergency room she was started on fluids and given fentanyl for pain control. In light of her need for surgery hospitalist service was notified and patient was placed in outpatient observation status under the care of Dr. Bess for surgical consultation with Dr. Britton for definitive surgical intervention. For complete details of the H&P refer to that document. LABORATORY White blood count is 12.2 with 81% neutrophils and 8% bands. Hemoglobin is 15.5 with hematocrit 43.1, MCV 84.5 and platelets 210,000. Serum sodium is 142, potassium 4.2, chloride 101, CO2 24, BUN 7 with creatinine 0.5, GFR 138 and blood glucose 353. Transaminases are unremarkable. Lipase is 127. ABG reveals pH of 7.440 with pCO2 35 and pO2 69 with 94% saturation while on room air. UA reveals 1+ protein, 3+ glucose, 3+ ketone, positive nitrite, 4+ bacteria. Urine test negative. HOSPITAL COURSE The patient was placed in outpatient observation status at [facility] under the care of Dr. Bess. She was made n.p.o. for bowel rest in light of anticipated surgical intervention. In light of her acute appendicitis and leukocytosis she was started on Zosyn 3.375 g IV q.6h. We did initiate normal saline to help with hydration and also help with glycemic control. Zofran was made available as needed for nausea and morphine available as needed for pain. We did initiate SCDs for DVT prophylaxis. Dr. Britton was consulted and did evaluate the patient. Risk versus benefit versus alternative therapy to laparoscopic appendectomy were discussed with the patient. Informed consent was obtained. She was taken to operating room on day of presentation where she underwent laparoscopic appendectomy by Dr. Britton. She did tolerate the procedure well and was no complications. Postoperatively, we did work to advance diet. We did continue Zosyn. By hospital day #1 she was doing better. She was noticing some incisional pain but it was managed well. She was using minimal doses of oral oxycodone for pain control. She was afebrile but white count did increase to 14.0. Blood sugars were showing acceptable control. Respiratory status was doing well. In light of her significant improvement we discussed about discharge home. The patient felt agreeable to this. She was able to be discharged to home in stable condition. Narrative disclaimer: Above narrative is a brief summary of the patient's hospitalization; for complete details of the hospital course refer to the medical record. DISCHARGE CONDITION Stable/good. DIET As tolerated. ACTIVITIES No heavy lifting more than 5 pounds for least two weeks. MEDICATIONS 1. Augmentin 500 mg p.o. b.i.d. x five days. 2. Oxycodone 5 mg q.4h. p.r.n. pain. 3. Tylenol 325 mg p.r.n. pain. 4. Ibuprofen 100 mg t.i.d. p.r.n. pain. 5. Levemir 25 units q.h.s. 6. Humalog 25 units subcu t.i.d. with meals. 7. Tradjenta 5 mg p.o. daily. 8. Lisinopril 20 mg daily. 9. Depo Provera every third month. FOLLOWUP 1. The patient will follow with Dr. Britton in approximally one week for surgical postop surgical evaluation. 2. The patient will follow up with [facility] as needed in the outpatient setting. INSTRUCTIONS TO PATIENT Patient was instructed on her diagnosis and treatments provided. She received informed consent prior to surgical intervention. Dr. Britton discussed lifting restrictions. He discussed signs and symptoms to watch for. Should she develop fevers or chills she should be in contact with her provider. If she develops increasing incisional pain or increase in drainage or problems with her incision she could be in contact with Dr. Britton. Should other problems or need arise, she could be in contact with her primary provider. If symptoms become quite dire she can present to emergency room for acute evaluation. She voiced understanding of the above. RONY
--- NOTE | 2016-05-04 08:40 | NUR ---
CM LAB C+S WAS FAXED TO [facility].
--- NOTE | 2016-05-04 09:24 | NUR ---
DM Screen Pt dismissed over the weekend when there is no RD coverage. RD will contact pt to offer out pt visit.
--- OUTSIDE RECORDS SUMMARY | 2016-05-04 11:28 | XMS REPORT | Continuity of Care Document ---
Author Author [facility] Organization [facility] Address Unknown Phone Unavailable Support Name Relationship Address Phone KIRAN SCHNEIDER MD Caregiver [address] [place] [address] [place] [address] Unavailable MARINE BRICE APRN Caregiver [address] [place] [address] Unavailable DEANDRE MCNULTY DO Caregiver [address] [place] [address] Unavailable OSIRIS VELA DO Caregiver [address] [place] [address] Unavailable SVETLANA ANDREA Next Of Kin [address] [place] [address] Insurance Providers Guarantor Sridevi Casey Address [address] [place] [address] Email DENIED/05-01-16 Payer Self Pay Subscriber's Name Sridevi Casey Relationship 18 Self Advance Directives Directive Response Recorded Date/Time Advanced Directives Type None 05/01/16 9:33am Ordered Resuscitation Status Full Code 05/01/16 11:30am Resuscitation Documents on File No 05/01/16 12:26pm DPOA for Healthcare Only No 05/01/16 1:14pm Living Will No 05/01/16 12:26pm Advanced Directive or Resuscitation Comments FULL CODE 05/01/16 12:26pm Problems Active Problems Medical Problem Onset Date Status Acute appendicitis Unknown Resolved Appendicitis Unknown Acute Depression Unknown Chronic Hepatic steatosis Unknown Chronic Hyperglycemia Unknown Acute Hypertension Unknown Chronic Leukocytosis Unknown Acute Needle stick injury of finger Unknown Acute Needle stick injury of finger Unknown Acute Obesity Unknown Chronic Type II diabetes mellitus Unknown Chronic Medications Current Home Medications Medication Dose Units Route Directions Days Qty Instructions Start Date Acetaminophen 325 Mg Tablet 325 Mg Oral As Needed as needed for Pain 05/01/16 Amoxicillin/Potassium Clav (Amox Tr-K Clv 500-125 Mg Tab) 1 Each Tablet 1 Tab Oral Twice A Day 10 Tablet TAKE WITH MEALS 05/02/16 Ibuprofen 800 Mg Tablet 800 Mg Oral Three Times A Day as needed for Pain 05/01/16 Insulin Detemir (Levemir Flextouch) 100 Unit/1 Ml Insuln.pen 25 Unit Sub-Q Bedtime 05/01/16 Insulin Lispro (Humalog) 100 Unit/Ml Inj 25 Unit Sub-Q Three Times Daily With Meals 05/01/16 Linagliptin (Tradjenta) 5 Mg Tablet 5 Mg Oral Daily 05/01/16 Lisinopril 20 Mg Tablet 20 Mg Oral Daily 05/01/16 Medroxyprogesterone Acetate (Depo-Provera) 150 Mg/1 Ml Vial 1 Ml Intramusc Every 3 Minutes 05/01/16 Oxycodone Hcl 5 Mg Tablet 5 Mg Oral Every 4 Hours as needed for Pain 25 Tablet 05/02/16 Social History Social History Problem Response Recorded Date/Time Onset Date Status Reason for Hospitalization Acute appendicitis 05/02/2016 6:07pm Not Applicable Not Applicable Chewing Tobacco Status No 05/01/2016 9:45am Not Applicable Not Applicable Hx Substance Use No 05/01/2016 9:45am Not Applicable Not Applicable Hx Alcohol Use No 05/01/2016 9:45am Not Applicable Not Applicable Tobacco Usage none 04/08/2014 2:50pm Not Applicable Not Applicable Query Response Start Date Stop Date Smoking Status Never smoker Hospital Discharge Instructions Instructions: Care Instructions: I was in the hospital because (patient own words): "BECAUSE I HAVE PAIN ON THE LEFT SIDE OF MY STOMACH" Discharge Diet: Advance diet as tolerated to preop diet. Discharge Activity: Restricted Follow Up Appointments: Alissa will call patient from office to schedule postoperative followup office visit. Pending Lab / Results: Will review at f/u apt Expected Signs/Symptoms: Usual incisional discomfort Notify Physician If: Any concern about appearance of wound During Business Hours:: Please call the physician's office at [phone] and choose option 2. After Business Hours:: Please call [phone] and have the power ballast machine operator page Dr. Rangel. Pain Management/Treatment: Take analgesics as prescribed Pain Scale Utilized to Educate Patient: 0-10 Pain Scale Wound/Incision Care: May shower or bathe starting tomorrow. Condition at time of discharge: Good Plan of Care Discharge Date 05/02/16 6:34pm Disposition 01 DISCHARGED HOME, SELF-CARE Instructions/Education Provided Laparoscopic Appendectomy (DC) Prescriptions See Medication Section Care Plan and Goals See Discharge Instructions Section Functional Status Query Response Date Recorded Mobility Status Ambulatory May 01, 2016 1:17pm Activity Limitations Pain May 01, 2016 1:17pm Feeding Ability Independent May 01, 2016 1:17pm Toileting Ability Independent May 01, 2016 1:17pm Grooming Ability Independent May 01, 2016 1:17pm Dressing Ability Independent May 01, 2016 1:17pm Driving Ability Assist May 01, 2016 1:17pm Housework Ability Independent May 01, 2016 1:17pm Meal Preparation Ability Independent May 01, 2016 1:17pm Stair Climbing Ability Independent May 01, 2016 1:17pm Ability to complete ADL's impeded by No change May 01, 2016 1:17pm Cognitive/Perceptual Impairments None May 01, 2016 1:17pm Communication Tools Traveling Clerk May 01, 2016 1:17pm Preferred Method of Learning Demonstration Listening Video/TV May 01, 2016 1:17pm Allergies, Adverse Reactions, Alerts No known allergies. Immunizations Query Response on File Recorded Date/Time Hx Influenza Vaccination Y SEP 2015 05/01/16 12:31pm Hx Pneumococcal Vaccination No 05/01/16 12:31pm Hx Influenza Vaccination Y SEP 2015 05/01/16 12:31pm Influenza Vaccine Hx September 2015 05/02/16 11:43am Vital Signs Acute Vital Signs Vital Response Date/Time Temperature (Fahrenheit) 98.6 deg F (96.8 - 99.1) 05/02/2016 4:00pm Temperature (Calculated Celsius) 37.72923 degrees C (36.0 - 37.3) 05/02/2016 4:00pm Temperature Source Oral 05/02/2016 4:00pm Pulse Rate (adult) 99 bpm (60 - 100) 05/02/2016 4:00pm Respiratory Rate 16 breaths/min (10 - 20) 05/02/2016 4:00pm O2 Sat by Pulse Oximetry 98 % (90 - 100) 05/02/2016 4:00pm Oxygen Delivery Method Room Air 05/02/2016 4:00pm Oxygen Delivery Method Room Air 05/01/2016 7:55pm Oxygen Flow Rate 6.00 L/min 05/01/2016 7:35pm Blood Pressure 144/99 mm Hg 05/02/2016 4:00pm Blood Pressure Source Automatic Cuff 05/02/2016 4:00pm Height (Feet) 5 feet 05/02/2016 1:27pm Height (Inches) 0.00 inches 05/02/2016 1:27pm Weight (Kilograms) 77.300 kg 05/02/2016 7:48am Body Mass Index (BMI) 33.3 05/01/2016 12:13pm Results Laboratory Results Test Name Result Units Flags Reference Collection Date/Time Result Date/ Time Comments White Blood Count 14.0 T/MM3 H 4.5-11.0 05/02/2016 4:3005/02/2016 5: 10am Red Blood Count 4.49 M/MM3 4.00-5.20 05/02/2016 4:3005/02/2016 5: 10am Hemoglobin 13.7 GM/DL D 12-16 05/02/2016 4:3005/02/2016 5:10am Hematocrit 39.0 % 36-46 05/02/2016 4:05/02/2016 5:10am Mean Corpuscular Volume 86.9 UM3 80-100 05/02/2016 4:3005/02/2016 5: 10am Mean Corpuscular Hemoglobin 30.5 UUG 26-34 05/02/2016 4:302016 5:10am Mean Corpuscular Hemoglobin Concent 35.1 GM/DL 31-37 05/02/2016 4:3005/02/2016 5:10am RDW Standard Deviation 37.3 FL 36.9-50.2 05/02/2016 4:3005/02/2016 5 :10am Platelet Count 194 T/MM3 130-400 05/02/2016 4:3005/02/2016 5:10am Mean Platelet Volume 11.3 UM3 9.4-12.4 05/02/2016 4:3005/02/2016 5: 10am Neutrophils (%) (Auto) 80.1 % H 33-66 05/02/2016 4:3005/02/2016 5: 10am Lymphocytes (%) (Auto) 11.7 % L 23-45 05/02/2016 4:3005/02/2016 5: 10am Monocytes (%) (Auto) 8.0 % 0-9.0 05/02/2016 4:3005/02/2016 5:10am Eosinophils (%) (Auto) 0.0 % 0-4 05/02/2016 4:3005/02/2016 5:10am Basophils (%) (Auto) 0.1 % 0-2 05/02/2016 4:3005/02/2016 5:10am Immature Granulocyte % (Auto) 0.1 % 0.0-0.5 05/02/2016 4:302016 5:10am Absolute Neutrophils (auto) 11.2 T/MM3 H 1.8-7.7 05/02/2016 4:3005/02 5:10am Absolute Lymphocytes (auto) 1.6 T/MM3 1-4.8 05/02/2016 4:302016 5:10am Absolute Monocytes (auto) 1.1 T/MM3 H 0-0.8 05/02/2016 4:302016 5:10am Absolute Eosinophils (auto) 0.0 T/MM3 0-0.5 05/02/2016 4:302016 5:10am Absolute Basophils (auto) 0.0 T/MM3 0-0.2 05/02/2016 4:3005/02/2016 5:10am Absolute Immature Granulocyte (auto 0.02 T/MM3 0.00-0.03 05/02/2016 4: 3005/02/2016 5:10am Neutrophils % (Manual) 81.0 % H 33-66 05/01/2016 9:5605/01/2016 10: 17am Band Neutrophils % 8.0 % H 0-6 05/01/2016 9:5605/01/2016 10:17am Lymphocytes % (Manual) 8.0 % L 23-45 05/01/2016 9:5605/01/2016 10: 17am Monocytes % (Manual) 3.0 % 0-9.0 05/01/2016 9:5605/01/2016 10:17am Band Neutrophils # 1.0 T/MM3 05/01/2016 9:5605/01/2016 10:17am Absolute Neutrophils (Manual) 9.9 T/MM3 H 1.8-7.7 05/01/2016 9:56 10:17am Lymphocytes # (Manual) 1.0 T/MM3 1-4.8 05/01/2016 9:5605/01/2016 10: 17am Monocytes # (Manual) 0.4 T/MM3 0-0.8 05/01/2016 9:56am 05/01/2016 10: 17am Red Cell Morphology Comment NORMAL 05/01/2016 9:56am 05/01/2016 10: 17am Icterus Index < 2 0-7 05/02/2016 4:30am 05/02/2016 5:25am Chemistry Specimen Hemolysis < 15 0-25 05/02/2016 4:30am 05/02/2016 5 :25am 0-25: Specimen Exhibited No Hemolysis. Turbidity < 20 0-20 05/02/2016 4:30am 05/02/2016 5:25am Sodium Level 136 MEQ/L D 134-144 05/02/2016 4:30am 05/02/2016 5:29am Potassium Level 3.7 MEQ/L 3.6-5 05/02/2016 4:30am 05/02/2016 5:25am Chloride Level 104 MEQ/L 98-107 05/02/2016 4:30am 05/02/2016 5:25am Carbon Dioxide Level 23 MEQ/L 22-30 05/02/2016 4:30am 05/02/2016 5: 25am Anion Gap 9 MEQ/L 5-15 05/02/2016 4:30am 05/02/2016 5:25am Blood Urea Nitrogen 5.0 MG/DL L 7-17 05/02/2016 4:30am 05/02/2016 5: 25am Creatinine 0.5 MG/DL L 0.7-1.2 05/02/2016 4:30am 05/02/2016 5:25am BUN/Creatinine Ratio 10 RATIO 6-26 05/02/2016 4:30am 05/02/2016 5:25am Glomerular Filtration Rate Calc 138 05/02/2016 4:3005/02/2016 5: 25am Glucose Level 294 MG/DL H 65-110 05/02/2016 4:30am 05/02/2016 5:25am Calculated Osmolality 270 MOSM/KG 261-280 05/02/2016 4:30am 05/02/2016 5:25am Calcium Level 8.1 MG/DL D L 8.4-10.2 05/02/2016 4:30am 05/02/2016 5:29am Total Bilirubin 1.10 MG/DL 0.20-1.30 05/01/2016 9:56am 05/01/2016 10: 12am Alkaline Phosphatase 118 U/L 38-126 05/01/2016 9:56am 05/01/2016 10: 12am Total Protein 7.7 G/DL 6.3-8.2 05/01/2016 9:56am 05/01/2016 10:12am Albumin 4.4 G/DL 3.5-5.0 05/01/2016 9:56am 05/01/2016 10:12am Globulin 3.3 G/DL 2.4-3.6 05/01/2016 9:56am 05/01/2016 10:12am Albumin/Globulin Ratio 1.3 RATIO 1.1-2.2 05/01/2016 9:56am 05/01/2016 10:12am Aspartate Amino Transf (AST/SGOT) 26 U/L 14-36 05/01/2016 9:56am 2016 10:12am Alanine Aminotransferase (ALT/SGPT) 40 U/L 9-52 05/01/2016 9:56am 05/01 10:12am Lipase 127 U/L 23-300 05/01/2016 9:56am 05/01/2016 10:12am Arterial Blood pH 7.440 7.350-7.450 05/01/2016 12:15pm 05/01/2016 12: 44pm Arterial Blood Partial Pressure CO2 35 MMHG 34-45 05/01/2016 12:15pm 12:44pm Arterial Blood pO2 at Patient Temp 69 MMHG L 80-100 05/01/2016 12:15pm 05/01/2016 12:44pm Arterial Blood HCO3 24 MEQ/L 22-26 05/01/2016 12:15pm 05/01/2016 12: 44pm Arterial Blood Total CO2 24.9 MEQ/L 23-27 05/01/2016 12:15pm 2016 12:44pm Arterial Blood Base Excess 0.0 MMOL/L -2.0-2.0 05/01/2016 12:15pm 05/01 12:44pm Arterial Blood Oxygen Saturation 94.0 % L 95.0-98.0 05/01/2016 12:15pm 05/01/2016 12:44pm Blood Gas Oxygen Percent Given 21 05/01/2016 12:15pm 05/01/2016 12: 44pm Oxygen Delivery Method (LAB) ROOM AIR 05/01/2016 12:15pm 2016 12:44pm Urine Collection Type CLEANCATCH-MIDSTREAM 05/01/2016 10:05/01 10:29am Urine Color YELLOW YELLOW 05/01/2016 10:05/01/2016 10:29am Urine Turbidity CLEAR CLEAR 05/01/2016 10:05/01/2016 10:29am Urine Specific [place] 1.015 1.015-1.025 05/01/2016 10:212016 10:29am Urine pH 7.0 5.0-8.0 05/01/2016 10:05/01/2016 10:29am Urine Leukocyte Esterase NEGATIVE NEGATIVE 05/01/2016 10:2016 10:29am Urine Nitrite POSITIVE A NEGATIVE 05/01/2016 10:05/01/2016 10: 29am Urine Protein 1+ A NEGATIVE 05/01/2016 10:05/01/2016 10:29am Urine Glucose (UA) 3+ A NEGATIVE 05/01/2016 10:05/01/2016 10: 29am Urine Ketones 3+ A NEGATIVE 05/01/2016 10:05/01/2016 10:29am Urine Urobilinogen 0.2 EU/DL NORMAL 05/01/2016 10:05/01/2016 10: 29am Urine Bilirubin NEGATIVE NEGATIVE 05/01/2016 10:05/01/2016 10: 29am Urine Blood NEGATIVE NEGATIVE 05/01/2016 10:05/01/2016 10:29am Urine WBC 0-1 /HPF 0-5 05/01/2016 10:05/01/2016 10:37am Urine RBC 0-1 /HPF 0-3 05/01/2016 10:05/01/2016 10:37am Urine Squamous Epithelial Cells 5-10 05/01/2016 10:2105/01/2016 10:37am Urine Bacteria 4+ H NEGATIVE 05/01/2016 10:05/01/2016 10:37am Urine Culture Indicated CULT REFLEXED &SETUP 05/01/2016 10: 10:37am Glucometer 277 mg/dL H 65-110 05/02/2016 5:14pm 05/02/2016 5:18pm Microbiology Results Procedure Source Organism/Result Collection Date/Time Result Date/Time Result Status Urine Culture Urine, Clean Catch-Midstream CULTURE INITIATED - RESULTS PENDING 05/01/2016 10:37am 05/01/2016 10:38am Preliminary Name: SRIDEVI CASEY Unit #: [id number] : 1980 Sex: F Admit Date: Loc / Svc: ED Discharge Date: DIAGNOSTIC IMAGING [facility]PORT [id number] ITS.REASON: RLQ Pain PROCEDURE: CT ABD/PELVIS W/CONTRAST ONLY: Encounter: Initial Comparison: None Technique: Axial CT images were performed through the abdomen and pelvis after the administration of intravenous contrast. Coronal and sagittal two-dimensional reformats. Automated Exposure Control and Iterative Reconstruction dose reducing techniques were utilized. Contrast: Omnipaque 300 100 mL Findings: Mild prominence of the interstitial markings in the lung bases. The liver is decreased in attenuation relative to the spleen consistent with fatty infiltration. No enhancing liver masses or bile duct dilatation. The gallbladder is normal. The spleen, pancreas and adrenal glands are within normal limits. Small probable cyst in the inferior aspect of the left kidney. The kidneys are otherwise normal. No abdominal or pelvic lymphadenopathy. The bladder is normal. Uterus and ovaries are normal for age. No free fluid or bowel obstruction. The appendix is enlarged measuring 9 mm in diameter. There may be trace inflammatory change in the adjacent fat. No free air or abscess. Bone windows show no acute findings. Calcified disk protrusion at T9-T10 causing right lateral recess narrowing. Impression: 1. Enlarged appendix with questionable minimal fat stranding consistent with an early or mild acute appendicitis in the appropriate clinical setting. Recommend surgical consultation. 2. Hepatic steatosis. . Procedures Procedure Status Date Provider(s) Laparoscopic appendectomy Completed 05/01/16 TEDDY RANGEL MD Encounters Encounter Location Arrival/Admit Date Discharge/Depart Date Attending Provider Discharged Inpatient (obs) [facility] 05/01/16 11:28am 05/02/16 6 :34pm KIRAN SCHNEIDER MD Discharged Recurring [facility] 12/17/15 4:41pm 02/03/16 11:59pm MARINE BRICE APRN
--- OUTSIDE RECORDS SUMMARY | 2016-05-04 11:28 | XMS REPORT | Continuity of Care Document ---
Author Author [facility] Organization [facility] Address Unknown Phone Unavailable Support Name Relationship Address Phone TEDDY RANGEL MD Caregiver [address] [place] [address] Unavailable KIRAN SCHNEIDER MD Caregiver [address] [place] [address] Unavailable MARINE BRICE APRN Caregiver [address] [place] [address] Unavailable DEANDRE MCNULTY DO Caregiver [address] [place] [address] Unavailable OSIRIS VELA DO Caregiver [address] [place] [address] Unavailable SVETLANA ANDREA Next Of Kin [address] [place] [address] Insurance Providers Guarantor Sridevi Casey Address [address] [place] [address] Email DENIED/05-01-16 Payer Self Pay Subscriber's Name Sridevi Casey Relationship 18 Self Advance Directives Directive Response Recorded Date/Time Advanced Directives Type None 05/01/16 9:33am Dr Hayes Resuscitation Status Full Code 05/01/16 11:30am Resuscitation Documents on File No 05/01/16 12:26pm DPOA for Healthcare Only No 05/01/16 1:14pm Living Will No 05/01/16 12:26pm Advanced Directive or Resuscitation Comments FULL CODE 05/01/16 12:26pm Problems Active Problems Medical Problem Onset Date Status Acute appendicitis Unknown Resolved Depression Unknown Chronic Hepatic steatosis Unknown Chronic Hyperglycemia Unknown Acute Hypertension Unknown Chronic Leukocytosis Unknown Acute Needle stick injury of finger Unknown Acute Needle stick injury of finger Unknown Acute Obesity Unknown Chronic Type II diabetes mellitus Unknown Chronic Past Problems Medical Problem Onset Date Appendicitis Unknown Medications Current Home Medications Medication Dose Units [...] Hours:: Please call the physician's office at [phone] and choose option 2. After Business Hours:: Please call [phone] and have the automatic profile shaper operator page Dr. Rangel. Pain Management/Treatment: Take analgesics as prescribed Pain Scale Utilized to Educate Patient: 0-10 Pain Scale Wound/Incision Care: May shower or bathe starting tomorrow. Condition at time of discharge: Good Plan of Care Discharge Date 05/02/16 6:34pm Instructions/Education Provided Laparoscopic Appendectomy (DC) Prescriptions See Medication Section Functional Status Query Response Date Recorded [...] None May 01, 2016 1:17pm Communication Tools Steaming Machine Operator May 01, 2016 1:17pm Preferred Method of [...] - 99.1) 05/02/2016 4:00pm Temperature (Calculated Celsius) 37.56414 degrees C (36.0 - 37.3) 05/02/2016 4:00pm [...] 4:3005/02/2016 5:10am Hematocrit 39.0 % 36-46 05/02/2016 4:3005/02/2016 5:10am Mean Corpuscular Volume 86.9 UM3 80-100 [...] % (Manual) 81.0 % H 33-66 05/01/2016 9:56am 05/01/2016 10: 17am Band Neutrophils % 8.0 % H 0-6 05/01/2016 9:5605/01/2016 10:17am Lymphocytes % (Manual) 8.0 % L 23-45 05/01/2016 9:56am 05/01/2016 10: 17am Monocytes % (Manual) 3.0 % 0-9.0 05/01/2016 9:5605/01/2016 10:17am Band Neutrophils # 1.0 T/MM3 05/01/2016 9:5605/01/2016 10:17am Absolute Neutrophils (Manual) 9.9 T/MM3 H 1.8-7.7 05/01/2016 9:56 10:17am Lymphocytes # (Manual) 1.0 T/MM3 1-4.8 05/01/2016 9:56am 05/01/2016 10: 17am Monocytes # (Manual) 0.4 T/MM3 [...] 5:25am Glomerular Filtration Rate Calc 138 05/02/2016 4:30am 05/02/2016 5: 25am Glucose Level 294 MG/DL H [...] 05/01/2016 12:44pm Blood Gas Oxygen Percent Given 05/01/2016 12:15pm 05/01/2016 12: 44pm Oxygen Delivery Method (LAB) ROOM AIR 05/01/2016 12:15pm 2016 12:44pm Urine Collection Type CLEANCATCH-MIDSTREAM 05/01/2016 10:05/01 10:29am Urine Color YELLOW YELLOW 05/01/2016 10:05/01/2016 10:29am Urine Turbidity CLEAR CLEAR 05/01/2016 10:05/01/2016 10:29am Urine Specific [place] 1.015 1.015-1.025 05/01/2016 10:2016 10:29am Urine pH 7.0 5.0-8.0 05/01/2016 10:05/01/2016 [...] 10:37am Urine Squamous Epithelial Cells 5-10 05/01/2016 10:05/01/2016 10:37am Urine Bacteria 4+ H NEGATIVE 05/01/2016 10:05/01/2016 10:37am Urine Culture Indicated CULT REFLEXED &SETUP 05/01/2016 10: 10:37am Glucometer 208 mg/dL H 65-110 05/01/2016 7:32pm 05/04/2016 5:22am Microbiology Results Procedure Source Organism/Result Collection Date/Time Result Date/Time Result Status Urine Culture Urine, Clean Catch-Midstream ESCHERICHIA COLI 05/01/2016 10: 37am 05/04/2016 6:48am Final STAPHYLOCOCCUS EPIDERMIDIS 05/01/2016 10:37am 05/04/2016 6:48am Final Name: SRIDEVI CASEY Unit #: [id number] : 1980 Sex: F Admit Date: Loc / Svc: ED Discharge Date: DIAGNOSTIC IMAGING REPORT Report #: [id number] [facility] JAEL Spangler Indication: ITS.REASON: RLQ Pain PROCEDURE: CT ABD/PELVIS [...] Location Arrival/Admit Date Discharge/Depart Date Attending Provider Departed [facility] 05/01/16 11:28am 05/02/16 6 :34pm TEDDY RANGEL MD
--- OUTSIDE RECORDS SUMMARY | 2016-05-04 11:28 | XMS REPORT | Continuity of Care Document ---
Author Author [facility] Organization [facility] Address Unknown Phone Unavailable Support Name Relationship Address Phone CLIENT, BILLING Caregiver Unknown Unavailable EMRE SVETLANA Next Of Kin [address] [place] [address] Insurance Providers Payer Name Policy Number Subscriber [...] F (96.8 - 99.1) Temperature (Calculated Celsius) 36.65910 degrees C (36.0 - 37.3) Pulse Rate [...] Encounters Encounter Location Date/Time Registered Emergency Room [facility] 04/08/14 1:20pm
--- OUTSIDE RECORDS SUMMARY | 2016-05-04 15:31 | XMS REPORT | Continuity of Care Document ---
Author Author [facility] Organization [facility] Address Unknown Phone Unavailable Support Name Relationship Address Phone CLIENT, BILLING Caregiver Unknown Unavailable EMRE SVETLANA Next Of Kin [address] [place] [address] Insurance Providers Payer Name Policy Number Subscriber [...] F (96.8 - 99.1) Temperature (Calculated Celsius) 36.90864 degrees C (36.0 - 37.3) Pulse Rate [...] Encounters Encounter Location Date/Time Registered Emergency Room [facility] 04/08/14 1:20pm
--- OUTSIDE RECORDS SUMMARY | 2016-05-04 15:31 | XMS REPORT | Continuity of Care Document ---
Author Author [facility] Organization [facility] Address Unknown Phone Unavailable Support Name Relationship Address Phone TEDDY RANGEL MD Caregiver [address] [place] [address] Unavailable KIRAN SCHNEIDER MD Caregiver [address] [place] [address] Unavailable MARINE BRICE APRN Caregiver [address] [place] [address] Unavailable DEANDRE MCNULTY DO Caregiver [address] [place] [address] Unavailable OSIRIS VELA DO Caregiver [address] [place] [address] Unavailable SVETLANA ANDREA Next Of Kin [address] [place] [address] Insurance Providers Guarantor Sridevi Casey Address [address] [place] [address] Email DENIED/05-01-16 Payer Self Pay Subscriber's Name [...] Hours:: Please call the physician's office at [phone] and choose option 2. After Business Hours:: Please call [phone] and have the armored cable machine operator page Dr. Rangel. Pain Management/Treatment: [...] None May 01, 2016 1:17pm Communication Tools Centrifugal Screen Tender May 01, 2016 1:17pm Preferred Method of [...] - 99.1) 05/02/2016 4:00pm Temperature (Calculated Celsius) 37.71299 degrees C (36.0 - 37.3) 05/02/2016 4:00pm [...] CLEAR CLEAR 05/01/2016 10:05/01/2016 10:29am Urine Specific [place] 1.015 1.015-1.025 05/01/2016 10:2016 10:29am Urine pH [...] 6:48am Final Name: SRIDEVI CASEY Unit #: [id number] : 1980 Sex: F Admit Date: Loc / Svc: ED Discharge Date: DIAGNOSTIC IMAGING REPORT Report #: [id number] [facility] JAEL Spangler Indication: ITS.REASON: RLQ Pain [...] Date Attending Provider Departed Surgical Day Care [facility] 05/01/16 11:28am TEDDY RAGNEL MD
== END 2016-05-02 18:34 | disposition home or self-care (01) ==
LOC: ED 09:31 → INTOOBSV 11:28 → UNDOADMOB 11:28 → SRG 11:28 → SCU 11:28 → EDHOLD 11:28 → SRG 12:00 → SCU 12:59 → UNDODISOB 05-02 18:34 → SRG 05-02 18:34 → SCU 05-02 18:34
PROVIDERS: ATTEND Surgery
DX: K35.80 Unspecified acute appendicitis (principal); E11.65 Type 2 diabetes mellitus with hyperglycemia; I10 Essential (primary) hypertension; K76.0 Fatty (change of) liver, not elsewhere classified; F32.9 Major depressive disorder, single episode, unspecified; E66.9 Obesity, unspecified; Z68.33 Body mass index [BMI] 33.0-33.9, adult; Z79.4 Long term (current) use of insulin; Z79.1 Long term (current) use of non-steroidal anti-inflammatories (NSAID); Z79.899 Other long term (current) drug therapy
CPT/HCPCS: 36000; 36415; 36600; 80048; 80053; 81001; 81025; 82803; 82948; 83690; 85025; 87077; 87086; 87088; 87186; 96360; 96372; 99218